=== PATIENT | female | born 1960 | race Caucasian/White ===

== ENCOUNTER → 2017-11-16 | Outpatient (CLI) | payer BC ==
--- NOTE | 2017-11-16 09:14 | FL ---
EXAMINATION TYPE: FL UGI DATE OF EXAM: 11/16/2017 COMPARISON: CTA chest July 20, 2016. HISTORY: Heartburn and discomfort after eating. TECHNIQUE: A double contrast UGI study is performed. 55 seconds of fluoroscopic time was utilized du ring procedure. 30 spot images were obtained during procedure. FINDINGS: [employer] image of the abdomen shows no gross abnormality. The esophagus shows normal some dysmotility with diminished transient time and emptying into stomach. No suspicious diverticular or intraluminal mass is identified. No strictures seen. No evidence of fi xed hiatal hernia. The stomach shows normal distensibility and peristalsis. There is mild to moderate gastric fold promi nence in the fundus. No evidence of any mass or carol ulcer disease. A few episodes of gastroesophag eal reflux were seen during real-time performance of study. The duodenal bulb, sweep, and proximal sm all bowel loops are unremarkable. IMPRESSION: Mild esophageal dysmotility, mild to moderate fundal gastritis. Gastroesophageal reflux v isualized.
== END | disposition home or self-care (01) ==
LOC: RADFLMAIN 07:41
PROVIDERS: ATTEND Family Medicine
DX: K22.4 Dyskinesia of esophagus (principal); K21.9 Gastro-esophageal reflux disease without esophagitis; K29.70 Gastritis, unspecified, without bleeding
CPT/HCPCS: 74240

== ENCOUNTER → 2017-12-01 | Outpatient (CLI) | payer BC ==
--- NOTE | 2017-12-01 12:28 | US ---
EXAMINATION TYPE: US abdomen complete DATE OF EXAM: 12/01/2017 COMPARISON: NONE CLINICAL HISTORY: 57-year-old female K30 Functional Dyspepsia. RUQ pain, nausea after eating, patient states having right adrenal gland surgery. Technique: Multiple sonographic images of the abdomen are obtained. FINDINGS: Liver Length: 19.4 cm Gallbladder Wall: 0.1 cm CHD: 5.7 mm CBD: 7.1 mm Spleen: 11.0 cm Right Kidney: 10.8 x 5.0 x 5.0 cm Left Kidney: 12.7 x 5.8 cm Pancreas: Appears somewhat atrophic and heterogeneous. Main pancreatic duct is dilated at 5.5 mm. Ta il not well visualized due to overlying bowel gas Liver: Enlarged, heterogeneous, echogenic, and attenuating. No focal lesion identified. Gallbladder: wnl Evidence for sonographic Hernandez's sign: neg CHD: Upper limits of normal in caliber. CBD: wnl Spleen: wnl Right Kidney: wnl Left Kidney: Sagittal images were taken and appears within normal limits. No masses or hydronephro sis seen. Transverse images not saved due to tech error. Upper IVC: wnl Abd Aorta: wnl IMPRESSION: 1. Mildly dilated main pancreatic duct. The hepatic duct also measures at the upper limits of normal in caliber. This may be chronic for the patient. Correlate with alkaline phosphatase/bilirubin as wel l as amylase/lipase levels. Follow-up CT to compare from 2016 as clinically indicated. 2. Mild hepatomegaly and heterogeneous appearance to the liver. Findings suggest underlying hepatic s teatosis or other nonspecific hepatocellular disease.
--- NOTE | 2017-12-01 12:30 | US ---
EXAMINATION TYPE: US pelvic limited DATE OF EXAM: 12/01/2017 COMPARISON: NONE CLINICAL HISTORY: 57-year-old female K30 Functional Dyspepsia. Frequent UTI's and increase in urinary frequency. Patient states having a total hysterectomy in 2000. EXAM PERFORMED: transabdominal (TA) FINDINGS: Uterus surgically absent. Both ovaries are surgically absent. No evident adnexal abnormality or cul-de-sac free fluid. Partial distention of the bladder limits its evaluation. Both ureteral jets are visualized. Postvoid bladder volume is 2.8 ml, within normal limits with essentially complete emptying. IMPRESSION: 1. Status post hysterectomy and bilateral oophorectomy. 2. No evident adnexal abnormality or pelvic free fluid. 3. The bladder is initially poorly distended. Both ureteral jets are visualized. 4. After voiding, there is essentially complete emptying of the bladder.
== END | disposition home or self-care (01) ==
LOC: RADUSWWP 09:33
PROVIDERS: ATTEND Family Medicine
DX: K86.89 Other specified diseases of pancreas (principal); R16.0 Hepatomegaly, not elsewhere classified; R93.2 Abnormal findings on diagnostic imaging of liver and biliary tract; Z90.710 Acquired absence of both cervix and uterus
CPT/HCPCS: 76700; 76857

== ENCOUNTER → 2018-03-17 | Outpatient (CLI) | payer BC ==
--- NOTE | 2018-03-17 18:59 | US ---
EXAMINATION TYPE: US venous doppler duplex LE DATE OF EXAM: 03/17/2018 6:45 PM COMPARISON: NONE CLINICAL HISTORY: I89.0 Lymphedema. edema hx of blood clots and PE on blood thinners. SIDE PERFORMED: Bilateral TECHNIQUE: The lower extremity deep venous system is examined utilizing real time linear array sonog susan with graded compression, doppler sonography and color-flow sonography. VESSELS IMAGED: External Iliac Vein (EIV) Common Femoral Vein Deep Femoral Vein Greater Saphenous Vein * Femoral Vein Popliteal Vein Small Saphenous Vein * Proximal Calf Veins (* superficial vessels) Right Leg: Negative for DVT Left Leg: Negative for DVT No evidence of DVT bilateral legs. IMPRESSION: No evidence of deep venous thrombosis in both legs.
== END | disposition home or self-care (01) ==
LOC: RADUSMAIN 17:46
PROVIDERS: ATTEND Family Medicine
DX: I89.0 Lymphedema, not elsewhere classified (principal)
CPT/HCPCS: 93970

== ENCOUNTER 2018-06-23 14:39 | Observation (INO) | payer BC ==
[2018-06-23] MEDS ORDERED: SODIUM CHLORIDE 0.9% 1,000 ML IV STA (15:09)
--- NOTE | 2018-06-23 16:03 | ED ---
Dizziness HPI - General Chief Complaint: Dizziness Stated Complaint: dizziness Time Seen by Provider: 06/23/18 15:03 Source: patient, RN notes reviewed Mode of arrival: wheelchair Limitations: no limitations - History of Present Illness Initial Comments: This a 58-year-old female presents emergency Department chief complaint of dizziness, fatigue. Patient states that she's had on-and-off dizzy spells where she feels that she loses her balance. She states that she's also been short of breath of the usual. Patient states that she does have a history of PE currently takes warfarin. Patient states that she has been subtherapeutic at times. Patient denies any chest pain per se. Patient states that she does feel very rundown and fatigued. Patient has no urinary symptoms. Patient does have mild sinus congestion. She does have a history of recurrent sinus infections. - Related Data Home Medications Medication Instructions Recorded Confirmed Bisoprolol-Hctz 5-6.25 mg [Ziac 1 tab PO DAILY 07/25/15 07/20/16 5-6.25 MG] Cholecalciferol [Vitamin D3] 1,000 unit PO DAILY 07/25/15 07/20/16 Gemfibrozil [Lopid] 600 mg PO DAILY 07/25/15 07/20/16 glipiZIDE [Glucotrol XL] 5 mg PO DAILY 07/25/15 07/20/16 ALPRAZolam 1 mg PO DAILY PRN 07/20/16 07/20/16 glipiZIDE [Glipizide ER] 5 mg PO DAILY 07/20/16 07/20/16 metFORMIN HCL 1,000 mg PO BID 07/20/16 07/20/16 metFORMIN HCL 1,000 mg PO BID 07/20/16 07/20/16 Previous Rx's Medication Instructions Recorded Rivaroxaban [Xarelto] 15 mg PO BID-W/MEALS #42 tab 07/22/16 Allergies Allergy/AdvReac Type Severity Reaction Status Date / Time amoxicillin Allergy Rash/Hives Verified 06/23/18 14:46 ibuprofen [From Motrin] Allergy Rash/Hives Verified 06/23/18 14:46 levofloxacin [From Levaquin] Allergy Rash/Hives Verified 06/23/18 14:46 sulfamethoxazole Allergy Rash/Hives Verified 06/23/18 14:46 [From Bactrim] trimethoprim [From Bactrim] Allergy Rash/Hives Verified 06/23/18 14:46 Review of Systems ROS Statement: Those systems with pertinent positive or pertinent negative responses have been documented in the HPI. ROS Other: All systems not noted in ROS Statement are negative. Past Medical History Past Medical History: Diabetes Mellitus, Deep Vein Thrombosis (DVT), Hyperlipidemia, Hypertension, Pulmonary Embolus (PE) History of Any Multi-Drug Resistant Organisms: None Reported Past Surgical History: Appendectomy, Section, Hysterectomy, Tubal Ligation Additional Past Surgical History / Comment(s): sinus surgery x3, X4, tubal and reversal, left kidney cyst removed, cyst removed fallopian tube Past Anesthesia/Blood Transfusion Reactions: Postoperative Nausea & Vomiting ( PONV) Past Psychological History: Anxiety Smoking Status: Never smoker Past Alcohol Use History: None Reported Past Drug Use History: None Reported - Past Family History Mother Family Medical History: Deep Vein Thrombosis (DVT) Additional Family Medical History / Comment(s): yeast allergy. Maternal grandmother DVT General Exam Limitations: no limitations General appearance: alert, in no apparent distress Head exam: Present: atraumatic, normocephalic, normal inspection Eye exam: Present: normal appearance, PERRL, EOMI. Absent: scleral icterus, conjunctival injection, periorbital swelling ENT exam: Present: normal exam, normal oropharynx, mucous membranes moist, TM's normal bilaterally Neck exam: Present: normal inspection, full ROM. Absent: tenderness, meningismus, lymphadenopathy Respiratory exam: Present: normal lung sounds bilaterally. Absent: respiratory distress, wheezes, rales, rhonchi, stridor Cardiovascular Exam: Present: regular rate, normal rhythm, normal heart sounds. Absent: systolic murmur, diastolic murmur, rubs, gallop, clicks GI/Abdominal exam: Present: soft, normal bowel sounds. Absent: distended, tenderness, guarding, rebound, rigid Neurological exam: Present: alert, oriented X3, CN II-XII intact, reflexes normal. Absent: motor sensory deficit Skin exam: Present: warm, dry, intact, normal color. Absent: rash Course Vital Signs 06/23/18 06/23/18 14:42 16:11 Temperature 98.0 F 97.6 F Pulse Rate 68 65 Respiratory 18 19 Rate Blood Pressure 126/66 121/56 O2 Sat by Pulse 97 99 Oximetry EKG Findings - EKG Comments: EKG Findings:: EKG performed at 15:22 normal sinus rhythm with rate of 64 WV 192 QRS 88 QT/QTC 450/464 Medical Decision Making - Medical Decision Making 4-year-old female presented to emergency department for dizziness, fatigue and shortness breath. Patient is evidence of PE. Patient's INR is 2.8 currently. Patient will be placed on heparin with no bolus and will be admitted at this time for further evaluation and treated for her urinary tract infection. - Lab Data Result diagrams: 06/23/18 15:32 06/23/18 15:32 Lab Results 06/23/18 06/23/18 06/23/18 Range/Units 15:32 15:32 15:32 WBC 8.8 (3.8-10.6) k/uL RBC 4.48 (3.80-5.40) m/uL Hgb 11.7 (11.4-16.0) gm/dL Hct 36.1 (34.0-46.0) % MCV 80.7 (80.0-100.0) fL MCH 26.1 (25.0-35.0) pg MCHC 32.4 (31.0-37.0) g/dL RDW 15.4 (11.5-15.5) % Plt Count 302 (150-450) k/uL Neutrophils % 47 % Lymphocytes % 40 % Monocytes % 7 % Eosinophils % 2 % Basophils % 1 % Neutrophils # 4.1 (1.3-7.7) k/uL Lymphocytes # 3.5 (1.0-4.8) k/uL Monocytes # 0.6 (0-1.0) k/uL Eosinophils # 0.2 (0-0.7) k/uL Basophils # 0.1 (0-0.2) k/uL PT 25.3 H (9.0-12.0) sec INR 2.8 H (<1.2) Sodium 138 (137-145) mmol/L Potassium 4.5 (3.5-5.1) mmol/L Chloride 101 (98-107) mmol/L Carbon Dioxide 30 (22-30) mmol/L Anion Gap 7 mmol/L BUN 19 H (7-17) mg/dL Creatinine 0.81 (0.52-1.04) mg/dL Est GFR (CKD-EPI)AfAm >90 (>60 ml/min/1.73 sqM) Est GFR (CKD-EPI)NonAf 80 (>60 ml/min/1.73 sqM) Glucose 132 H (74-99) mg/dL Calcium 9.6 (8.4-10.2) mg/dL Total Bilirubin 0.3 (0.2-1.3) mg/dL AST 19 (14-36) U/L ALT 26 (9-52) U/L Alkaline Phosphatase 59 (38-126) U/L Troponin I (0.000-0.034) ng/mL Total Protein 7.3 (6.3-8.2) g/dL Albumin 3.7 (3.5-5.0) g/dL Urine Color Urine Appearance (Clear) Urine pH (5.0-8.0) Ur Specific [place] (1.001-1.035) Urine Protein (Negative) Urine Glucose (UA) (Negative) Urine Ketones (Negative) Urine Blood (Negative) Urine Nitrite (Negative) Urine Bilirubin (Negative) Urine Urobilinogen (<2.0) mg/dL Ur Leukocyte Esterase (Negative) Urine RBC (0-5) /hpf Urine WBC (0-5) /hpf Urine Bacteria (None) /hpf 06/23/18 06/23/18 Range/Units 15:32 15:32 WBC (3.8-10.6) k/uL RBC (3.80-5.40) m/uL Hgb (11.4-16.0) gm/dL Hct (34.0-46.0) % MCV (80.0-100.0) fL MCH (25.0-35.0) pg MCHC (31.0-37.0) g/dL RDW (11.5-15.5) % Plt Count (150-450) k/uL Neutrophils % % Lymphocytes % % Monocytes % % Eosinophils % % Basophils % % Neutrophils # (1.3-7.7) k/uL Lymphocytes # (1.0-4.8) k/uL Monocytes # (0-1.0) k/uL Eosinophils # (0-0.7) k/uL Basophils # (0-0.2) k/uL PT (9.0-12.0) sec INR (<1.2) Sodium (137-145) mmol/L Potassium (3.5-5.1) mmol/L Chloride (98-107) mmol/L Carbon Dioxide (22-30) mmol/L Anion Gap mmol/L BUN (7-17) mg/dL Creatinine (0.52-1.04) mg/dL Est GFR (CKD-EPI)AfAm (>60 ml/min/1.73 sqM) Est GFR (CKD-EPI)NonAf (>60 ml/min/1.73 sqM) Glucose (74-99) mg/dL Calcium (8.4-10.2) mg/dL Total Bilirubin (0.2-1.3) mg/dL AST (14-36) U/L ALT (9-52) U/L Alkaline Phosphatase (38-126) U/L Troponin I <0.012 (0.000-0.034) ng/mL Total Protein (6.3-8.2) g/dL Albumin (3.5-5.0) g/dL Urine Color Colorless Urine Appearance Clear (Clear) Urine pH 7.0 (5.0-8.0) Ur Specific [place] 1.005 (1.001-1.035) Urine Protein Negative (Negative) Urine Glucose (UA) Negative (Negative) Urine Ketones Negative (Negative) Urine Blood Negative (Negative) Urine Nitrite Negative (Negative) Urine Bilirubin Negative (Negative) Urine Urobilinogen <2.0 (<2.0) mg/dL Ur Leukocyte Esterase Large H (Negative) Urine RBC <1 (0-5) /hpf Urine WBC 56 H (0-5) /hpf Urine Bacteria Rare H (None) /hpf Disposition Clinical Impression: Pulmonary embolism, UTI (urinary tract infection) Disposition: ADMITTED IP TO THIS HOSP Condition: Fair Referrals: Jus Sams DO [Primary Care Provider] - 1-2 days
[2018-06-23 16:09] LABS: Basophils # (A) 0.1 k/uL (0-0.2); Basophils % (A) 1 %; Eosinophils # (A) 0.2 k/uL (0-0.7); Eosinophils % (A) 2 %; HCT 36.1 % (34.0-46.0); HGB 11.7 gm/dL (11.4-16.0); Lymphocytes # (A) 3.5 k/uL (1.0-4.8); Lymphocytes % (A) 40 %; MCH 26.1 pg (25.0-35.0); MCHC 32.4 g/dL (31.0-37.0); MCV 80.7 fL (80.0-100.0); Mean Platelet Volume 7.3; Monocytes # (A) 0.6 k/uL (0-1.0); Monocytes % (A) 7 %; Neutrophils # (A) 4.1 k/uL (1.3-7.7); Neutrophils % (A) 47 %; Platelet Count 302 k/uL (150-450); RBC 4.48 m/uL (3.80-5.40); RDW 15.4 % (11.5-15.5); WBC 8.8 k/uL (3.8-10.6)
[2018-06-23 16:16] LABS: Appearance,Urine Clear (Clear); Bacteria,Urine Rare /hpf; Bilirubin,Urine Negative (Negative); Blood,Urine Negative (Negative); Color,Urine Colorless; Glucose,Urine (UA) Negative (Negative); Ketones,Urine Negative (Negative); Leukocyte Esterase,Urine Large (Negative); Nitrite,Urine Negative (Negative); Protein,Urine Negative (Negative); RBC,Urine <1 /hpf (0-5); Specific Gravity,Urine 1.005 (1.001-1.035); Urobilinogen,Urine <2.0 mg/dL (<2.0); WBC,Urine 56 /hpf (0-5)
[2018-06-23 16:24] LABS: ALT 26 U/L (9-52); AST 19 U/L (14-36); Albumin 3.7 g/dL (3.5-5.0); Alkaline Phosphatase 59 U/L (38-126); Anion Gap 7 mmol/L; Blood Urea Nitrogen 19 mg/dL (7-17); Calcium 9.6 mg/dL (8.4-10.2); Carbon Dioxide 30 mmol/L (22-30); Chloride 101 mmol/L (98-107); Glucose 132 mg/dL (74-99); Potassium 4.5 mmol/L (3.5-5.1); Sodium 138 mmol/L (137-145); Total Bilirubin 0.3 mg/dL (0.2-1.3); Total Protein 7.3 g/dL (6.3-8.2)
[2018-06-23 16:26] LABS: INR 2.8 (<1.2); Prothrombin Time 25.3 sec (9.0-12.0)
--- NOTE | 2018-06-23 17:33 | CT ---
EXAMINATION TYPE: CT brain wo con DATE OF EXAM: 06/23/2018 COMPARISON: None HISTORY: Dizziness CT DLP: 1079 mGycm Automated exposure control for dose reduction was used. FINDINGS: Ventricles and sulci appear normal. There is no mass effect nor midline shift. There is no sign of in tracranial hemorrhage. The calvarium is intact. There is extensive mucosal thickening in the visualiz ed maxillary ethmoid and frontal sinuses. Sphenoid sinus appears opacified. IMPRESSION: NEGATIVE CT SCAN OF THE BRAIN. PANSINUSITIS.
--- NOTE | 2018-06-23 18:05 | CT ---
EXAMINATION TYPE: CT chest angio for PE DATE OF EXAM: 06/23/2018 COMPARISON: 07/20/2016 HISTORY: Dizziness and chest pains CT DLP: 620 mGycm Automated exposure control for dose reduction was used. CONTRAST: CT Chest for pulmonary embolism performed with with IV Contrast, patient injected with 100 mL of Isov ue 370. There are 3-D post processed images. FINDINGS: There is some patchy linear density in the lingula left upper lobe. The other lung calhoun are clear. There is no pleural effusion. Heart appears enlarged. There is a small filling defect in the right lower lobe pulmonary artery in the lateral basal segment branch. There are small filling defect in the proximal right lower lobe pulmonary artery in the post erior basal segment branch. There are other pulmonary arteries appear to be more normally opacified. Thoracic aorta appears normal. There is no evidence of aneurysm or dissection. There is no mediastina l adenopathy. There are no hilar masses. There is a oval-shaped 3.8 cm mass right adrenal gland. IMPRESSION: Embolism in the right lower lobe pulmonary artery. There is significant clearing of the extensive emb martin compared to old CT scan of 07/20/2016. It is not clear if the embolism right lower lobe is a new embolism. Stable right adrenal mass compared to old exam that suggests benign disease. This exam was discussed with Fiordaliza in the emergency room at 6:00 PM.
[2018-06-23] MEDS ORDERED: NALOXONE 0.4 MG/ML 1 ML VIAL IV PRN (18:34)
[2018-06-23] MEDS ORDERED: ACETAMINOPHEN TAB 325 MG TAB PO PRN (18:34)
[2018-06-23] MEDS: HEPARIN SOD,PORK IN 0.45% NACL 25,000 UNIT in 0.45% NACL 1 500ML.BAG IV SCH (19:13)
[2018-06-23 20:34] VITALS: BMI 50.4
[2018-06-23] MEDS ORDERED: CALCIUM CARBONATE 500 MG CHEWABLE PO PRN (21:31)
[2018-06-23] MEDS ORDERED: MAGNESIUM HYDROXIDE 2,400 MG/10 ML CUP PO PRN (21:31)
[2018-06-23] MEDS ORDERED: ALPRAZolam 1 MG TAB PO PRN (21:31)
[2018-06-23] MEDS ORDERED: MELATONIN 3 MG TABLET PO PRN (21:31)
[2018-06-23] MEDS ORDERED: LACTULOSE 20 GM/30 ML CUP PO PRN (21:31)
[2018-06-23] MEDS ORDERED: ALPRAZolam 0.25 MG TAB PO PRN (21:31)
[2018-06-23] MEDS ORDERED: ONDANSETRON 4 MG/2 ML VIAL IVP PRN (21:31)
[2018-06-23] MEDS ORDERED: NON-FORMULARY DRUG (Acetaminophen [Tylenol Arthritis] 650 MG) PO PRN (21:31)
[2018-06-23 21:32] LABS: Glucose,Whole Blood 218 mg/dL (75-99)
[2018-06-23] MEDS: INSULIN ASPART 100 UNIT/ML 1 ML 10 ML VIAL SQ SCH (21:55)
[2018-06-23] MEDS: FAMOTIDINE 20 MG TAB PO SCH (21:55)
[2018-06-24 05:45] LABS: Glucose,Whole Blood 163 mg/dL (75-99)
[2018-06-24] MEDS: INSULIN ASPART 100 UNIT/ML 1 ML 10 ML VIAL SQ SCH ×3 (06:35→17:29)
[2018-06-24] MEDS: HEPARIN SOD,PORK IN 0.45% NACL 25,000 UNIT in 0.45% NACL 1 500ML.BAG IV SCH ×2 (06:35→18:33)
[2018-06-24] MEDS ORDERED: INSULIN ASPART 100 UNIT/ML 1 ML 10 ML VIAL SQ SCH (07:30)
[2018-06-24] MEDS: glipiZIDE 5 MG TAB PO SCH ×2 (08:22→19:54)
[2018-06-24] MEDS: ESCITALOPRAM 10 MG TAB PO SCH (08:22)
[2018-06-24] MEDS: metFORMIN 500 MG TAB PO SCH ×2 (08:22→19:54)
[2018-06-24] MEDS: BISOPROLOL-HCTZ 5-6.25 MG 1 EACH TAB PO SCH (08:22)
[2018-06-24] MEDS: FENOFIBRATE 160 MG TAB PO SCH (08:22)
[2018-06-24] MEDS: FAMOTIDINE 20 MG TAB PO SCH ×2 (08:23→19:54)
[2018-06-24 11:39] LABS: Glucose,Whole Blood 140 mg/dL (75-99)
--- NOTE | 2018-06-24 12:44 | P.CNPUL ---
History of Present Illness Consult date: 06/24/18 Reason for consult: other Chief complaint: Lightheadedness, dizziness, urinary tract infection, weakness History of present illness: Pulmonary consultation dated 06/24/2018 This is a 58-year-old female who presents to the emergency department with complaints of dizziness fatigue and weakness. The patient is not really having any shortness of breath. The patient denies any chest pain or chest discomfort. The patient apparently was seen by her primary care physician and apparently had a low iron level. Apparently was told by the office medical staff director to come to the ER. The patient is on blood thinners in the form of Coumadin. She's been on blood thinners for quite some time. 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 She was told by Dr. Velazquez that she needed lifelong anticoagulation which she's been on. She states that her PT INR have always been therapeutic. She does admit to some urinary complaints in the form of dysuria and frequency and was diagnosed as having a urinary tract infection. This may explain some of her symptoms of fatigue dizziness and weakness. In addition, she feels that she has a mild sinus infection. Doing relatively well now. She is not anemic. Her PT/INR is within the normal therapeutic range. She's not requiring any supplemental oxygen. She had a CT angiogram performed which some residual clot in the right lower lobe pulmonary artery. Most of the clot burden has dissipated. This is apparently compared to a computed tomography scan done back in June 2016. White count is 8.8, hemoglobin 11.7 hematocrit 36.1 and platelet count 302,000. PT 25.3 INR therapeutic at 2.8. The patient's on IV heparin and I'm not sure exactly why. Sodium potassium chloride CO2 all normal. BUN 19 creatinine 0.81. Urinalysis is positive for leukocyte esterase and 56 WBCs and rare bacteria. Review of Systems A 14 point review of systems is positive for lightheadedness and dizziness weakness and fatigue as well as some mild urinary tract symptoms. Not having any shortness of breath or any respiratory complaints for that matter. Past Medical History Past Medical History: Diabetes Mellitus, Deep Vein Thrombosis (DVT), Hyperlipidemia, Hypertension, Pulmonary Embolus (PE) History of Any Multi-Drug Resistant Organisms: None Reported Past Surgical History: Appendectomy, Section, Hysterectomy, Tubal Ligation Additional Past Surgical History / Comment(s): sinus surgery x3, X4, tubal and reversal, left kidney cyst removed, cyst removed fallopian tube Past Anesthesia/Blood Transfusion Reactions: Postoperative Nausea & Vomiting ( PONV) Past Psychological History: Anxiety Smoking Status: Never smoker Past Alcohol Use History: None Reported Past Drug Use History: None Reported - Past Family History Mother Family Medical History: Deep Vein Thrombosis (DVT) Additional Family Medical History / Comment(s): yeast allergy. Maternal grandmother DVT Medications and Allergies Home Medications Medication Instructions Recorded Confirmed Type Bisoprolol-Hctz 5-6.25 mg [Ziac 1 tab PO DAILY 07/25/15 06/23/18 History 5-6.25 MG] Gemfibrozil [Lopid] 600 mg PO DAILY 07/25/15 06/23/18 History ALPRAZolam 1 mg PO DAILY PRN 07/20/16 06/23/18 History glipiZIDE [Glipizide ER] 10 mg PO DAILY 07/20/16 06/23/18 History metFORMIN HCL 1,000 mg PO BID 07/20/16 06/23/18 History Acetaminophen [Tylenol Arthritis] 650 mg PO Q6H PRN 06/23/18 06/23/18 History Escitalopram Oxalate [Lexapro] 10 mg PO DAILY 06/23/18 06/23/18 History Ranitidine HCl [Zantac] 150 mg PO BID 06/23/18 06/23/18 History Warfarin [Coumadin] 2.5 mg PO SUMOTUTHFRSA 06/23/18 06/23/18 History Warfarin [Coumadin] 5 mg PO WE 06/23/18 06/23/18 History Allergies Allergy/AdvReac Type Severity Reaction Status Date / Time amoxicillin Allergy Rash/Hives Verified 06/23/18 18:45 ibuprofen [From Motrin] Allergy Rash/Hives Verified 06/23/18 18:45 levofloxacin [From Levaquin] Allergy Rash/Hives Verified 06/23/18 18:45 sulfamethoxazole Allergy Rash/Hives Verified 06/23/18 18:45 [From Bactrim] trimethoprim [From Bactrim] Allergy Rash/Hives Verified 06/23/18 18:45 Physical Exam Osteopathic Statement: *. No significant issues noted on an osteopathic structural exam other than those noted in the History and Physical/Consult. Vitals: Vital Signs Temp Pulse Pulse Resp BP BP Pulse Ox 06/24/18 08:00 96.8 F L 72 16 118/58 95 06/24/18 03:29 64 18 06/24/18 03:28 97.6 F 64 18 124/86 99 06/23/18 23:37 97.3 F L 74 18 130/73 96 06/23/18 23:26 60 18 06/23/18 20:24 97.0 F L 60 18 157/83 99 06/23/18 20:00 60 18 06/23/18 18:47 61 18 152/67 98 06/23/18 18:41 97.8 F 66 18 158/71 97 06/23/18 16:11 97.6 F 65 19 121/56 99 06/23/18 14:42 98.0 F 68 18 126/66 97 Intake and Output 06/23/18 06/24/18 06/24/18 22:59 06:59 14:59 Intake Total 80 525.033 862.333 Balance 80 525.033 862.333 Intake: IV 80 80 219.5 0.9 80 80 30 Heparin Sod,Pork in 0.45% 189.5 NaCl 25,000 unit In 0.45 % NaCl 1 500ml.bag @ 17. 248 UNITS/KG/HR 46 mls/hr IV .[id number] [facility] Rx#: [id number] Intake, IV Titration 445.033 217.833 Amount Heparin Sod,Pork in 0.45% 445.033 167.833 NaCl 25,000 unit In 0.45 % NaCl 1 500ml.bag @ 17. 248 UNITS/KG/HR 46 mls/hr IV .[id number] [facility] Rx#: [id number] 1,000 mg In 50 Sodium Chloride 0.9% 50 ml @ 100 mls/hr IVPB Q24HR [facility] Rx#:[id number] Oral 425 Other: Voiding Method Toilet Toilet Toilet # Voids 2 Weight 133.356 kg 134.5 kg No acute distress, oriented 3. No obvious respiratory distress and not requiring any supplemental oxygen. HEENT examination is grossly unremarkable. Mucous membranes are moist. No oral lesions. Neck supple. Full range of motion. No adenopathy thyromegaly or neck vein distention. Cardiovascular examination reveals regular rhythm rate. S1-S2 normal. No S3 or S4. No discernible murmur noted. Lungs reveal clear breath sounds. Breath sounds are equal bilaterally. No adventitious lung sounds including wheezes rhonchi or crackles. Abdomen soft bowel sounds are heard. No masses or tenderness. Extremities are intact. No cyanosis clubbing or edema. Skin is without rash or lesion. Neurologic examination is brief but nonfocal. Results - Laboratory Findings CBC and BMP: 06/23/18 15:32 06/23/18 15:32 PT/INR, D-dimer PT 25.3 sec (9.0-12.0) H 06/23/18 15:32 INR 2.8 (<1.2) H 06/23/18 15:32 Abnormal lab findings: Abnormal Labs 06/23/18 06/23/18 06/23/18 15:32 15:32 15:32 PT 25.3 H INR 2.8 H APTT BUN 19 H Glucose 132 H POC Glucose (mg/dL) Ur Leukocyte Esterase Large H Urine WBC 56 H Urine Bacteria Rare H 06/23/18 06/24/18 06/24/18 21:31 01:15 05:43 PT INR APTT 113.9 H* BUN Glucose POC Glucose (mg/dL) 218 H 163 H Ur Leukocyte Esterase Urine WBC Urine Bacteria 06/24/18 06/24/18 09:53 11:37 PT INR APTT 77.5 H BUN Glucose POC Glucose (mg/dL) 140 H Ur Leukocyte Esterase Urine WBC Urine Bacteria - Diagnostic Findings Chest x-ray: report reviewed, image reviewed CT scan - chest: report reviewed, image reviewed (Labs, x-rays, medications, and computed tomography scan are reviewed.) Assessment and Plan Assessment: Assessment Vague complaints of lightheadedness and dizziness and fatigue, unlikely related to a new onset pulmonary embolism but rather to either a sinus infection and/or a urinary tract infection. 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 Urinary tract infection, acute History of diabetes mellitus Previous history of DVT Hyperlipidemia History of hypertension Previous history of , hysterectomy, tubal ligation Plan: Plan dated 06/24/2018 I don't believe the patient has had a new onset pulmonary embolism. I think what we are seeing in the right lower lobe pulmonary artery is residual or old clot from the previous pulmonary embolism. Most of the clot burden from 2016 has dissipated. I don't believe the patient needs IV heparin. The patient has been therapeutic. The patient has been on warfarin since 2016 when she had the previous PE when she was discovered to have factor V Leiden factor deficiency. I believe her complaints are related either to a sinus infection and/or an acute urinary tract infection. She is comfortable on room air. She is not having any respiratory issues or complaints. She should stay on blood thinners in the form of Coumadin that she seemed to tolerate it relatively well and is usually therapeutic. No additional recommendations are made at this time. Time with Patient: Greater than 30
--- NOTE | 2018-06-24 15:33 | US ---
EXAMINATION TYPE: US venous doppler duplex LE DATE OF EXAM: 06/24/2018 2:59 PM COMPARISON: NONE CLINICAL HISTORY: r/o DVT Leg swelling, worse on right. Morbidly obese patient. SIDE PERFORMED: Bilateral TECHNIQUE: The lower extremity deep venous system is examined utilizing real time linear array sonog susan with graded compression, doppler sonography and color-flow sonography. VESSELS IMAGED: External Iliac Vein (EIV) Common Femoral Vein Deep Femoral Vein Greater Saphenous Vein * Femoral Vein Popliteal Vein Small Saphenous Vein * Proximal Calf Veins, not visualized due to obesity (* superficial vessels) Right Leg: Negative for DVT, technically difficult and somewhat limited study Left Leg: Negative for DVT, technically difficult and somewhat limited study. IMPRESSION: 1. Limited exam demonstrates no diagnostic evidence of DVT.
[2018-06-24 16:05] LABS: Hemoglobin A1C 8.7 % (4.0-6.0)
[2018-06-24 16:26] LABS: Glucose,Whole Blood 155 mg/dL (75-99)
[2018-06-24] MEDS ORDERED: WARFARIN 2.5 MG TAB PO SCH (18:00)
--- NOTE | 2018-06-24 18:45 | HP ---
HISTORY AND PHYSICAL DATE OF ADMISSION: 06/23/2018 DATE OF SERVICE: 06/24/2018 PRESENTING COMPLAINT: Weak and tired. HISTORY OF PRESENTING COMPLAINT: This is a very pleasant 58-year-old patient of Dr. Sams. Chronic stable medical conditions include diabetes, hypertension, hyperlipidemia, anxiety. Patient had a pulmonary embolism in April 2016 and has been on Coumadin. Patient presented to the ER with a multitude of symptoms. The patient has been taking care of her with Parkinson's for quite a while and gets really exhausted. Patient tends to wake up several times at night, never gets a good sleep and is tired all the time. She goes to work at the [employer] for half a day and is tired all the time. The patient simply feels completely exhausted and rundown. There is no chest pain or shortness of breath. No palpitation. Just feels totally off; often wants to just sleep. Sometimes she has to sleep in a recliner because of that and normally gets cumulative about 5 or 6 hours of sleep a day. Normally she used to normally get 8 to 10 hours of sleep a day. Her 23-year-old son takes care of her when she goes to work. Patient's appetite has been off. No fever. No chills. The patient has some urinary frequency. The patient did have a CT scan in the ER and pulmonary embolism was noted. They could not tell if it is acute or chronic; hence patient was put on IV heparin in the ER. The patient's INR was therapeutic. REVIEW OF SYSTEMS: CONSTITUTIONAL: Tired, sleepy. HEENT: None. RESPIRATORY: None. CARDIOVASCULAR: None. GASTROINTESTINAL: None. GENITOURINARY: Some urinary frequency. DERMATOLOGICAL: None. HEMATOLOGICAL: None. LYMPHATICS: None. PSYCHIATRY: Tired. NEUROLOGICAL: None. PAST MEDICAL HISTORY: 1. Diabetes mellitus, type 2. 2. DVT. 3. Hyperlipidemia. 4. Hypertension. 5. Pulmonary embolism. PAST SURGICAL HISTORY: 1. Appendectomy. 2. x4. 3. Hysterectomy. 4. Tubal ligation. 5. Sinus surgery x3. 6. Tubal ligation reversal. 7. Left kidney cyst removed. PSYCH HISTORY: Anxiety. SOCIAL HISTORY: Does not smoke or drink alcohol. Takes care of her with Parkinson's disease. FAMILY HISTORY: DVT. HOME MEDICATIONS: 1. Metformin 1000 mg b.i.d. 2. Glipizide ER 10 mg p.o. daily. 3. Coumadin 2.5 mg on Thursday, Thursday, Thursday, , Thursday, Thursday and 5 mg on Thursday. 4. Zantac 150 mg p.o. b.i.d. 5. Lopid 600 mg p.o. daily. 6. Lexapro 10 mg p.o. daily. 7. Ziac 5/6.25 one tablet p.o. daily. 8. Tylenol Arthritis 650 mg q.6 p.r.n. 9. Xanax 1 mg p.o. daily p.r.n. ALLERGIES: 1. AMOXICILLIN. 2. IBUPROFEN. 3. LEVAQUIN. 4. BACTRIM. PHYSICAL EXAMINATION: VITAL SIGNS ON PRESENTATION: Temperature 98, pulse 68, respiration 18, blood pressure 122/66, pulse ox 97% on room air. GENERAL APPEARANCE: Morbidly obese; 50.9. Sitting up on edge of the bed, comfortable. EYES: Pupils equal. Conjunctivae normal. HEENT: External appearance of nose and ears normal. Oral cavity normal. NECK: Short, thick. JVD unable to assess. Mass not palpable. RESPIRATORY: Effort normal. LUNGS: Distant breath sounds. CARDIOVASCULAR: First and second sounds normal. Non-pitting edema. ABDOMEN: Soft, nontender. Liver and spleen not palpable. LYMPHATIC: No lymph node palpable in neck or axillae. PSYCHIATRY: Alert and oriented x3. Mood and affect tired-appearing. NEUROLOGICAL: Pupils equal. Cranial nerves grossly intact. Power and sensation grossly intact. INVESTIGATIONS: White count 8.8, hemoglobin 11.7, INR 2.8, potassium 4.5, BUN 19, creatinine 0.81. Troponin I less than 0.012. UA positive for leukocyte esterase, WBC. CT scan of the brain unremarkable. Chest CTA shows embolism in the right lower lobe pulmonary artery, significant clearing of extensive emboli compared to CT scan in 2016. Acuteness of the embolism cannot be stated. EKG tracing, personally reviewed by me, shows normal sinus rhythm. ASSESSMENT: 1. This patient presents with feeling weak, tired, rundown with no respiratory symptoms. Appears to be simply exhausted by sheer sleep deprivation because patient has to be up at night taking care of her several times and does not get to sleep during the daytime; this is simply a manifestation of severe sleep deprivation. Patient needs to maintain better sleep hygiene. 2. Morbid obesity with body mass index of 50.9. 3. Rule out hypothyroidism. 4. Bilateral lower extremity lymphedema. 5. Chronic pulmonary embolism. Patient has no new respiratory symptoms; hence there is no need for further change of anticoagulation. Patient to continue on Coumadin. 6. Chronic Coumadin monitoring. 7. Hypertension. 8. Hyperlipidemia. 9. Diabetes mellitus, type 2, on oral hypoglycemic. PLAN: I had a lengthy talk with the patient. Did talk to her about her sleep hygiene. For precaution, a Doppler ultrasound of the lower extremities was done. No DVT was found. Pulmonary consultation was done to get their opinion from Dr. Carlisle. Will discontinue the IV heparin, resume patient's Coumadin. The patient is also being treated for UTI. We will give Tony wraps for the lower extremity non-pitting edema. Care was discussed with the patient. Questions were answered. MMDAWNAL / IJN: [id number] /
[2018-06-24 21:20] LABS: Glucose,Whole Blood 166 mg/dL (75-99)
[2018-06-24 21:59] VITALS: RESP 16
[2018-06-24 23:10] LABS: Appearance,Urine Clear (Clear); Bilirubin,Urine Negative (Negative); Blood,Urine Negative (Negative); Budding Yeast,Urine Occasional /hpf; Color,Urine Light Yellow; Glucose,Urine (UA) Negative (Negative); Ketones,Urine Negative (Negative); Leukocyte Esterase,Urine Moderate (Negative); Nitrite,Urine Negative (Negative); PH, Urine 6.5 (5.0-8.0); Protein,Urine Negative (Negative); RBC,Urine 1 /hpf (0-5); Specific Gravity,Urine 1.009 (1.001-1.035); Squamous Epithelial Cell,Urine <1 /hpf (0-4); Urobilinogen,Urine <2.0 mg/dL (<2.0); WBC,Urine 26 /hpf (0-5)
[2018-06-25 06:34] VITALS: BP 113/79; PULSE 71; TEMP 98
[2018-06-25 07:06] LABS: Glucose,Whole Blood 187 mg/dL (75-99)
[2018-06-25] MEDS: INSULIN ASPART 100 UNIT/ML 1 ML 10 ML VIAL SQ SCH ×2 (07:40→12:07)
[2018-06-25] MEDS: FAMOTIDINE 20 MG TAB PO SCH (07:41)
[2018-06-25] MEDS: FENOFIBRATE 160 MG TAB PO SCH (07:41)
[2018-06-25] MEDS: ESCITALOPRAM 10 MG TAB PO SCH (07:41)
[2018-06-25] MEDS: glipiZIDE 5 MG TAB PO SCH (07:41)
[2018-06-25] MEDS: BISOPROLOL-HCTZ 5-6.25 MG 1 EACH TAB PO SCH (07:41)
[2018-06-25] MEDS: metFORMIN 500 MG TAB PO SCH (07:41)
[2018-06-25] MEDS ORDERED: LEVOFLOXACIN 250 MG TAB PO SCH (09:00)
[2018-06-25 09:35] LABS: INR 1.9 (<1.2); Prothrombin Time 17.4 sec (9.0-12.0)
[2018-06-25] MEDS ORDERED: CIPROFLOXACIN HCL 250 MG TAB PO SCH (12:00)
[2018-06-25 12:06] LABS: Glucose,Whole Blood 113 mg/dL (75-99)
--- NOTE | 2018-06-25 12:31 | P.PN ---
Subjective Progress Note Date: 06/25/18 Principal diagnosis: Lightheadedness and dizziness and fatigue, likely related to pansinusitis. History of pulmonary embolism on Coumadin Pulmonary consultation dated 06/24/2018 This is a 58-year-old female who presents to the emergency department with complaints of dizziness fatigue and weakness. The patient is not really having any shortness of breath. The patient denies any chest pain or chest discomfort. The patient apparently was seen by her primary care physician and apparently had a low iron level. Apparently was told by the office medical planner to come to the ER. The patient is on blood thinners in the form of Coumadin. She's been on blood thinners for quite some time. 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 She was told by Dr. Velazquez that she needed lifelong anticoagulation which she's been on. She states that her PT INR have always been therapeutic. She does admit to some urinary complaints in the form of dysuria and frequency and was diagnosed as having a urinary tract infection. This may explain some of her symptoms of fatigue dizziness and weakness. In addition, she feels that she has a mild sinus infection. Doing relatively well now. She is not anemic. Her PT/INR is within the normal therapeutic range. She's not requiring any supplemental oxygen. She had a CT angiogram performed which some residual clot in the right lower lobe pulmonary artery. Most of the clot burden has dissipated. This is apparently compared to a computed tomography scan done back in June 2016. White count is 8.8, hemoglobin 11.7 hematocrit 36.1 and platelet count 302,000. PT 25.3 INR therapeutic at 2.8. The patient's on IV heparin and I'm not sure exactly why. Sodium potassium chloride CO2 all normal. BUN 19 creatinine 0.81. Urinalysis is positive for leukocyte esterase and 56 WBCs and rare bacteria. On 06/17/2018 patient seen in follow-up on medical surgical floor. She sitting up in the chair, in no acute distress. Room air pulse ox is 95%, she is afebrile, not tachycardic, vital signs are stable. No chest pain or shortness of breath. Lung sounds are clear to auscultation. He continues on Coumadin for her history of Leiden factor V deficiency, and history of pulmonary embolism. Her INR today is 1.9. Patient's CT angiogram revealed some residual clot in the right lower lobe pulmonary artery, with most of the clot burden dissipated. Brain CT showed pansinusitis. Patient is on ciprofloxacin Objective - Vital Signs Vital signs: Vital Signs Temp 98.0 F 06/25/18 06:33 Pulse 71 06/25/18 06:33 Resp 16 06/25/18 06:33 BP 113/79 06/25/18 06:33 Pulse Ox 95 06/25/18 11:29 Intake & Output 06/24/18 06/25/18 06/25/18 18:59 06:59 18:59 Intake Total 1582.333 480 Output Total 800 Balance 1582.333 -320 Intake: IV 219.5 0.9 30 Heparin Sod,Pork in 0.45% 189.5 NaCl 25,000 unit In 0.45 % NaCl 1 500ml.bag @ 17. 248 UNITS/KG/HR 46 mls/hr IV .[id number] [facility] Rx#: [id number] Intake, IV Titration 217.833 Amount Heparin Sod,Pork in 0.45% 167.833 NaCl 25,000 unit In 0.45 % NaCl 1 500ml.bag @ 17. 248 UNITS/KG/HR 46 mls/hr IV .[id number] [facility] Rx#: [id number] cefTRIAXone 1,000 mg In 50 Sodium Chloride 0.9% 50 ml @ 100 mls/hr IVPB Q24HR [facility] Rx#:[id number] Oral 1145 480 Output: Urine 800 Other: Voiding Method Toilet # Voids 2 1 # Bowel Movements 0 - Exam No acute distress, oriented 3. No obvious respiratory distress and not requiring any supplemental oxygen. HEENT examination is grossly unremarkable. Mucous membranes are moist. No oral lesions. Neck supple. Full range of motion. No adenopathy thyromegaly or neck vein distention. Cardiovascular examination reveals regular rhythm rate. S1-S2 normal. No S3 or S4. No discernible murmur noted. Lungs reveal clear breath sounds. Breath sounds are equal bilaterally. No adventitious lung sounds including wheezes rhonchi or crackles. Abdomen soft bowel sounds are heard. No masses or tenderness. Extremities are intact. No cyanosis clubbing or edema. Skin is without rash or lesion. Neurologic examination is brief but nonfocal. - Labs CBC & Chem 7: 06/23/18 15:32 06/23/18 15:32 Labs: Abnormal Lab Results - Last 24 Hours (Table) 06/23/18 06/24/18 06/24/18 Range/Units 15:32 16:20 16:25 PT (9.0-12.0) sec INR (<1.2) APTT 55.2 H (22.0-30.0) sec POC Glucose (mg/dL) 155 H (75-99) mg/dL Hemoglobin A1c 8.7 H (4.0-6.0) % Ur Leukocyte Esterase (Negative) Urine WBC (0-5) /hpf Urine Yeast (Budding) (None) /hpf 06/24/18 06/24/18 06/25/18 Range/Units 21:19 22:50 07:03 PT (9.0-12.0) sec INR (<1.2) APTT (22.0-30.0) sec POC Glucose (mg/dL) 166 H 187 H (75-99) mg/dL Hemoglobin A1c (4.0-6.0) % Ur Leukocyte Esterase Moderate H (Negative) Urine WBC 26 H (0-5) /hpf Urine Yeast (Budding) Occasional H (None) /hpf 06/25/18 06/25/18 Range/Units 08:44 12:04 PT 17.4 H (9.0-12.0) sec INR 1.9 H (<1.2) APTT (22.0-30.0) sec POC Glucose (mg/dL) 113 H (75-99) mg/dL Hemoglobin A1c (4.0-6.0) % Ur Leukocyte Esterase (Negative) Urine WBC (0-5) /hpf Urine Yeast (Budding) (None) /hpf Microbiology - Last 24 Hours (Table) 06/24/18 22:50 Urine Culture - Preliminary Urine,Voided Assessment and Plan Plan: Vague complaints of lightheadedness and dizziness and fatigue, unlikely related to a new onset pulmonary embolism but rather to either a sinus infection and/or a urinary tract infection. On chronic Coumadin therapy, and the patient is currently therapeutic History of factor V Leiden factor V deficiency with a previous pulmonary embolism back in 2016, on lifelong anticoagulation. Urinary tract infection, acute History of diabetes mellitus Previous history of DVT Hyperlipidemia History of hypertension Previous history of , hysterectomy, tubal ligation Plan: Patient is doing well, and her symptoms are not thought to be related to a new pulmonary embolism, CT angiogram showed dissipating old pulmonary embolism with the residual clot in the right lower lobe. Continue Coumadin. Patient is covered with antibiotics for her pansinusitis. Clinically he is doing well, no acute complaints. Patient can be cleared for discharge home from pulmonary standpoint I performed a history & physical examination of the patient and discussed their management with my nurse practitioner, Joycelyn Montoya. I reviewed the nurse practitioner's note and agree with the documented findings and plan of care. Lung sounds are clear. The findings and the impression was discussed with the patient. I attest to the documentation by the nurse practitioner. Time with Patient: Less than 30
--- NOTE | 2018-06-25 23:33 | DS ---
DISCHARGE SUMMARY DATE OF ADMISSION: 06/23/2018. DATE OF DISCHARGE: 06/25/2018. FINAL DIAGNOSES: 1. Severe exhaustion from severe sleep deprivation due to social factors. 2. Morbid obesity, body mass index 50.9. 3. Bilateral lower extremity lymphedema. 4. Chronic pulmonary embolism. No evidence of acute pulmonary embolism. 5. Chronic Coumadin monitoring. 6. Essential hypertension. 7. Hyperlipidemia. 8. Diabetes mellitus type 2 on oral hypoglycemic. 9. Acute urinary tract infection. HOSPITAL COURSE: This patient presented weak and tired, totally rundown. Has been taking care of her with Parkinson's. Not able to sleep at night and then goes to work in the morning. The patient did have a CT scan that showed PE that could not be told if new or old, though much better than prior CT scan. Since the symptoms are not compatible PE, this diagnosis was disregarded. The patient was simply sleep-deprived and exhausted. The patient did sleep actually the night she came to the hospital and felt fairly well. Care was discussed with the patient. CONSULTATION: Dr. Carlisle from Pulmonary. PHYSICAL EXAMINATION: Temperature 98, blood pressure 130/79, pulse ox 95% on room air. INR 2.8. DISCHARGE MEDICATIONS: 1. Ziac 5/6.25, 1 tablet p.o. daily. 2. Lopid 600 mg daily. 3. Xanax 1 mg p.o. daily p.r.n. 4. Glipizide 10 mg p.o. daily. 5. Metformin 1000 mg b.i.d. 6. Lexapro 10 mg p.o. daily. 7. Zantac 150 mg b.i.d. 8. Coumadin 2.5 mg on Thursday, Thursday, Thursday, , Thursday, Thursday and 5 mg on Thursday. 9. Cipro 250 mg b.i.d., 4 tablets. FOLLOWUP: Follow up with Dr. Sams on 07/02/2018. The patient was told to wear Tony wraps. Sleep hygiene was discussed in detail. MMODL / CARLOSN: [id number] /
[2018-06-30] MEDS ORDERED: WARFARIN 5 MG TAB PO SCH (18:00)
== END 2018-06-25 15:37 | disposition home or self-care (01) ==
LOC: EC 14:39 → INTOOBSV 18:57 → 6SEL 18:57 → 4MS4W 06-24 21:20
PROVIDERS: ADMIT Hospitalist; ATTEND Hospitalist
DX: R53.83 Other fatigue (principal); Z72.820 Sleep deprivation; I27.82 Chronic pulmonary embolism; N39.0 Urinary tract infection, site not specified; I89.0 Lymphedema, not elsewhere classified; I10 Essential (primary) hypertension; E78.5 Hyperlipidemia, unspecified; E11.9 Type 2 diabetes mellitus without complications; D68.2 Hereditary deficiency of other clotting factors; J32.4 Chronic pansinusitis; E66.01 Morbid (severe) obesity due to excess calories; Z68.43 Body mass index [BMI] 50.0-59.9, adult; R53.1 Weakness; F41.9 Anxiety disorder, unspecified; R42 Dizziness and giddiness; Z79.84 Long term (current) use of oral hypoglycemic drugs; Z79.01 Long term (current) use of anticoagulants; Z79.899 Other long term (current) drug therapy; Z88.6 Allergy status to analgesic agent; Z88.1 Allergy status to other antibiotic agents; Z88.0 Allergy status to penicillin; Z88.2 Allergy status to sulfonamides; Z86.718 Personal history of other venous thrombosis and embolism; Z90.710 Acquired absence of both cervix and uterus; Z90.89 Acquired absence of other organs; Z83.2 Family history of diseases of the blood and blood-forming organs and certain disorders involving the immune mechanism
CPT/HCPCS: 96366; 96361; 96365; 99285; 36415; 93005; 80053; 84443; 84484; 85025; 85610 ×2; 85730; 81001 ×2; 87086; 83036; 93970; 70450; 71275; G0378 ×3; J1644 ×2; J0696 ×2; Q9967

== ENCOUNTER → 2019-05-20 | Outpatient (CLI) | payer BC ==
--- NOTE | 2019-05-20 16:09 | CT ---
EXAMINATION TYPE: CT sinus wo con DATE OF EXAM: 05/20/2019 COMPARISON: 12/13/2010 HISTORY: Chronic sinusitis and dizziness. CT DLP: 627.[address] of the paranasal sinuses was performed in the axial and coronal planes. Bone and soft tissue settings are submitted. Postoperative changes of medial maxillary antrectomy and ethmoidectomy. Persistent mucosal thickening noted of the maxillary sinuses and remaining ethmoid air cells. Complete opacification of diminutive frontal sinuses. The nasal septum is midline. No bony destructive changes are seen within the field of view. IMPRESSION: 1. Postoperative changes as noted with chronic pansinusitis redemonstrated.
== END | disposition home or self-care (01) ==
LOC: RADCTMAIN 15:39
PROVIDERS: ATTEND Family Medicine
DX: J32.4 Chronic pansinusitis (principal); Z98.890 Other specified postprocedural states
CPT/HCPCS: 70486

== ENCOUNTER → 2020-01-23 | Outpatient (CLI) | payer BC ==
--- NOTE | 2020-01-23 11:22 | US ---
EXAMINATION TYPE: US abdomen complete DATE OF EXAM: 01/23/2020 COMPARISON: 12/01/2017 ultrasound abdomen CLINICAL HISTORY: R10.11 R upper quad pain. RUQ pain EXAM MEASUREMENTS: Liver Length: 19.0 cm Gallbladder Wall: .14 cm CBD: .6 cm Spleen: 11.3 cm Right Kidney: 9.4 x 4.8 x 5.4 cm Left Kidney: 12.3 x 5.7 x 4.1 cm Pancreas: Dilated duct .5cm. Liver: There is increased echogenicity of the hepatic parenchyma with diminished visualization of th e portal triads most commonly relating to hepatic steatosis and limiting evaluation for underlying he patic masses. Gallbladder: wnl Evidence for sonographic Hernandez's sign: No CBD: wnl Spleen: wnl Right Kidney: Cortical thinning. Left Kidney: Cortical thinning, to a lesser degree than on the right. Upper IVC: wnl Abd Aorta: wnl IMPRESSION: 1. Dilated main pancreatic duct is again seen as seen on the prior of 12/01/2017. Considerations are fo r sequela of chronic pancreatitis, main branch IPMN or less likely necrotic neoplasm as there is no s ignificant interval change from the prior ultrasound. Again relation with serum alkaline phosphatase/ bilirubin, amylase/lipase levels and CA-19-9 levels are recommended. 2. Sonographic findings most commonly related to hepatic steatosis. Correlate with liver function govind ts. 3. Bilateral cortical renal thinning (right greater than left) indicative of chronic medical renal di sease.
== END | disposition home or self-care (01) ==
LOC: RADUSWWP 10:04
PROVIDERS: ATTEND Family Medicine
DX: K86.89 Other specified diseases of pancreas (principal); K86.1 Other chronic pancreatitis; K76.0 Fatty (change of) liver, not elsewhere classified; N28.89 Other specified disorders of kidney and ureter
CPT/HCPCS: 76700

== ENCOUNTER → 2020-08-21 | Outpatient (CLI) | payer BC ==
--- NOTE | 2020-08-21 18:16 | BD ---
EXAMINATION TYPE: Axial Bone Density DATE OF EXAM: 08/21/2020 COMPARISON: 11/29/2004 CLINICAL HISTORY: Postmenopausal screening Height: 5 FT 4 1/4 IN Weight: 264 FRAX RISK QUESTIONS: Alcohol (3 or more units per day): NO Family History (Parent hip fracture): NO Glucocorticoids (More than 3mos): NO (Ex: prednisone, prednisolone, methylprednisolone, dexamethasone, and hydrocortisone). History of Fracture in Adulthood: YES Secondary Osteoporosis: 1. Type 1 Diabetes: NO 2. Hyperthyroidism: NO 3. Menopause before 45: AT 43 4. Malnutrition: NO 5. Chronic liver disease: NO Rheumatoid Arthritis: NO Current Tobacco Use: NO RISK FACTORS HISTORY OF: Family History of Osteoporosis: NO Active: YES Diet low in dairy products/other sources of calcium: NO Postmenopausal woman: TOTAL HYST AGE 43 Take estrogen and/or progesterone medications: NONE Lost more than 2 inches in height since high school: NO Frequent falls: NO MEDICATIONS: Additional Medications: METFORMIN, CHOLESTEROL MEDS, ZIAC, ELEQUIS, REFLUX MEDS, Additional History: EXAM MEASUREMENTS: Bone mineral densitometry was performed using the [employer] System. Bone mineral density as measured about the Lumbar spine is: ----- L1-L4(G/cm2): 1.796 T Score Values are as follows: ----- L2: 5.1 ----- L3: 4.9 ----- L4: 5.8 ----- L1-L4: 5.1 Bone mineral density has: INCREASED 13.3 % since study of: 2004 Bone mineral density about the R hip (g/cm2): 1.669 Bone mineral density about the L hip (g/cm2): 1.549 T Score values are as follows: -----R Neck: 3.7 -----L Neck: 4.5 -----R Total: 5.4 -----L Total: 5.5 Bone mineral density has: INCREASED 6.6 % since study of: 2004 IMPRESSION: Normal (Values between +1 and -1 indicate normal bone mass). Consider repeating this study in 5 year s or sooner if there is some new clinical indication. NOTE: T-SCORE=SD OF THE YOUNG ADULT MEAN.
--- NOTE | 2020-08-22 09:30 | MM ---
Reason for exam: screening (asymptomatic). Last mammogram was performed 14 years and 5 months ago. History: Patient is postmenopausal. Physical Findings: A clinical breast exam by your physician is recommended on an annual basis and results should be correlated with mammographic findings. MG Screening Mammo w CAD Bilateral CC and MLO view(s) were taken. Prior study comparison: March 27, 2006, bilateral screening mammogram w/CAD. November 29, 2004, bilateral screening mammogram. There are scattered fibroglandular densities. Stable benign calcifications. There is no discrete abnormality. No significant changes when compared with prior studies. ASSESSMENT: Benign, BI-RAD 2 RECOMMENDATION: Routine screening mammogram of both breasts in 1 year.
== END | disposition home or self-care (01) ==
LOC: RADMAMWWP 11:50
PROVIDERS: ATTEND Family Medicine
DX: Z12.31 Encounter for screening mammogram for malignant neoplasm of breast (principal); Z13.820 Encounter for screening for osteoporosis; M85.88 Other specified disorders of bone density and structure, other site
CPT/HCPCS: 77067; 77080

== ENCOUNTER → 2023-12-29 | Outpatient (CLI) | payer MEDICARE, BC ==
--- NOTE | 2023-12-30 09:18 | CA ---
Transthoracic Echo Report Name: Darlene Chi Age: 63 Gender: F : 1960 Exam Date: 12/29/2023 14:50 Exam Location: [facility] Ht (in): 64 Wt (lb): 257 Ordering Physician: Jus Sams DO Attending/Referring Phys: Jus Sams DO Procurement Technician Debbie Francisco RDCS Procedure CPT: Indications: R01.1 CARDIAC MURMUR, UNSPECIFIED Cardiac Hx: Technical Quality: Technically difficult study Contrast 1: Definity Total Dose (mL): 2 Contrast 2: Total Dose (mL): MEASUREMENTS (Male / Female) Normal Values 2D ECHO LV Diastolic Diameter PLAX 4.7 cm 4.2 - 5.9 / 3.9 - 5.3 cm LV Systolic Diameter PLAX 3.9 cm IVS Diastolic Thickness 1.3 cm 0.6 - 1.0 / 0.6 - 0.9 cm LVPW Diastolic Thickness 1.2 cm 0.6 - 1.0 / 0.6 - 0.9 cm LV Relative Wall Thickness 0.5 RV Internal Dim ED PLAX 4.2 cm LA Volume 53.8 cm??? 18 - 58 / 22 - 52 cm??? LA Volume Index 22.8 cm???/m??? 16 - 28 cm???/m??? M-MODE Aortic Root Diameter MM 2.4 cm LA Systolic Diameter MM 5.1 cm LA Ao Ratio MM 2.1 DOPPLER AV Peak Velocity 189.5 cm/s AV Peak Gradient 14.4 mmHg AV Mean Velocity 123.8 cm/s AV Mean Gradient 7.1 mmHg AV Velocity Time Integral 41.5 cm LVOT Peak Velocity 117.9 cm/s LVOT Peak Gradient 5.6 mmHg LVOT Velocity Time Integral 27.9 cm MV Area PHT 2.9 cm??? Mitral E Point Velocity 68.9 cm/s Mitral A Point Velocity 103.3 cm/s Mitral E to A Ratio 0.7 MV Deceleration Time 257.6 ms MV E' Velocity 6.7 cm/s Mitral E to MV E' Ratio 10.3 TR Peak Velocity 185.5 cm/s TR Peak Gradient 13.8 mmHg Right Ventricular Systolic Press 18.8 mmHg FINDINGS Left Ventricle Mildly increased left ventricular wall thickness. Left ventricular cavity size normal. Normal left ventricular systolic function with no obvious regional wall motion abnormalities. Left ventricular ejection fraction is estimated at 55-60 %. Grade 1 diastolic dysfunction. Right Ventricle Right ventricular dilatation. Right ventricular systolic pressure within normal limits. Right Atrium Right atrium not well visualized. Left Atrium Mildly increased left atrial volume. Mitral Valve Structurally normal mitral valve. Mild mitral regurgitation. Aortic Valve Aortic valve not well visualized. No aortic valve stenosis or regurgitation. Tricuspid Valve Structurally normal tricuspid valve. Mild tricuspid regurgitation. Pulmonic Valve Structurally normal pulmonic valve. Pericardium No pericardial effusion. Aorta Normal size aortic root and proximal ascending aorta. CONCLUSIONS Left ventricular ejection fraction 55-60% Mildly increased left ventricular wall thickness Mild mitral regurgitation Mild tricuspid regurgitation No pericardial effusion Previewed by: Dr. Hayes Brandon DO (Electronically Signed) Final Date: 30 December 2023 09:17
== END | disposition home or self-care (01) ==
LOC: RADECHMAIN 14:27
PROVIDERS: ATTEND Family Medicine
DX: I34.0 Nonrheumatic mitral (valve) insufficiency (principal); I07.1 Rheumatic tricuspid insufficiency
CPT/HCPCS: C8929; Q9957; 93306

== ENCOUNTER 2025-03-12 21:10 | Observation (INO) | payer MEDICARE, BC ==
[2025-03-12 21:19] LABS: Glucose,Whole Blood 197 mg/dL (70-110)
--- NOTE | 2025-03-12 21:33 | ED ---
General Adult HPI - General Source: patient, EMS, RN notes reviewed Mode of arrival: ambulatory - History of Present Illness Onset/Timin -: hour(s) Associated Symptoms: cough, fever/chills, malaise, nausea/vomiting <Lior Mohan - Last Filed: 03/12/25 22:52> <Rustam Vazquez - Last Filed: 03/16/25 19:16> - General Chief complaint: Nausea/Vomiting/Diarrhea Stated complaint: Fever, Nausea/Vomiting Time Seen by Provider: 03/12/25 21:27 - History of Present Illness Initial comments: This is a 64-year-old female with history including DM, hypertension, hyperlipidemia and blood clots presenting for sick symptoms x 36 hours. Patient states she is having a fever/chills, fatigue, N/V/D. Also endorses cough with phlegm production and mid back pain. Patient states she wears depends diapers. Endorses use of Tylenol this morning. Denies chest pain, dyspnea, abdominal pain, hematemesis, hematochezia, melena, dysuria, hematuria. (Lior Mohan) - Related Data Home Medications Medication Instructions Recorded Confirmed Bisoprolol-Hctz 5-6.25 mg [Ziac 1 tab PO DAILY 07/25/15 03/13/25 5-6.25 MG] Acetaminophen [Tylenol Arthritis] 1,300 mg PO Q6H PRN 06/23/18 03/13/25 Apixaban [Eliquis] 2.5 mg PO BID 03/13/25 03/13/25 Atorvastatin [Lipitor] 40 mg PO DAILY 03/13/25 03/13/25 Escitalopram [Lexapro] 20 mg PO DAILY 03/13/25 03/13/25 Folic Acid 0.4 mg PO DAILY 03/13/25 03/13/25 Gabapentin [Neurontin] 600 mg PO HS 03/13/25 03/13/25 Insulin Aspart [NovoLOG Flexpen] 28 units SQ AC-BRKFST 03/13/25 03/13/25 Insulin Aspart [NovoLOG Flexpen] 32 units SQ AC-BID@1300,1700 03/13/25 03/13/25 Insulin Glargine (Lantus) [Lantus 50 unit SQ BID 03/13/25 03/13/25 Vial] traZODone HCL [Desyrel] 50 mg PO HS 03/13/25 03/13/25 Previous Rx's Medication Instructions Recorded Doxycycline 100 mg PO BID #6 tab 03/14/25 Loratadine-Pseudoeph 5-120 mg 1 each PO Q12HR #4 tab 03/14/25 [Claritin-D 12 Hour] Allergies Allergy/AdvReac Type Severity Reaction Status Date / Time amoxicillin Allergy Rash/Hives Verified 03/13/25 07:51 ibuprofen [From Motrin] Allergy Rash/Hives Verified 03/13/25 07:51 levofloxacin [From Levaquin] Allergy Rash/Hives Verified 03/13/25 07:51 sulfamethoxazole Allergy Rash/Hives Verified 03/13/25 07:51 [From Bactrim] trimethoprim [From Bactrim] Allergy Rash/Hives Verified 03/13/25 07:51 Review of Systems ROS Other: All systems not noted in ROS Statement are negative. <Lior Mohan - Last Filed: 03/12/25 22:52> ROS Other: All systems not noted in ROS Statement are negative. <Rustam Vazquez - Last Filed: 03/16/25 19:16> ROS Statement: Those systems with pertinent positive or pertinent negative responses have been documented in the HPI. Past Medical History Past Medical History: Blood Disorder, Diabetes Mellitus, Deep Vein Thrombosis (DVT), Hyperlipidemia, Hypertension, Pulmonary Embolus (PE) Additional Past Medical History / Comment(s): IRON DEFICIENCY. History of Any Multi-Drug Resistant Organisms: None Reported Past Surgical History: Appendectomy, Section, Hysterectomy, Tubal Ligation Additional Past Surgical History / Comment(s): sinus surgery x3, X4, tubal and reversal, left kidney cyst removed, cyst removed fallopian tube Past Anesthesia/Blood Transfusion Reactions: Postoperative Nausea & Vomiting (PONV) Past Psychological History: Anxiety Smoking Status: Never smoker Past Alcohol Use History: None Reported Past Drug Use History: Marijuana - Past Family History Mother Family Medical History: Deep Vein Thrombosis (DVT) Additional Family Medical History / Comment(s): yeast allergy. Maternal grandmother DVT <Lior Mohan - Last Filed: 03/12/25 22:52> General Exam General appearance: alert, in no apparent distress Head exam: Present: atraumatic, normocephalic, normal inspection Eye exam: Present: normal appearance, PERRL, EOMI. Absent: scleral icterus, conjunctival injection, periorbital swelling ENT exam: Present: normal exam, mucous membranes dry Neck exam: Present: normal inspection. Absent: tenderness, meningismus, lymphadenopathy Respiratory exam: Present: normal lung sounds bilaterally. Absent: respiratory distress, wheezes, rales, rhonchi, stridor, accessory muscle use, decreased breath sounds, prolonged expiratory Cardiovascular Exam: Present: regular rate, normal rhythm, normal heart sounds. Absent: systolic murmur, diastolic murmur, rubs, gallop, clicks GI/Abdominal exam: Present: soft, normal bowel sounds. Absent: distended, tenderness, guarding, rebound, rigid Extremities exam: Present: normal inspection, full ROM, normal capillary refill. Absent: tenderness, pedal edema, joint swelling, calf tenderness Back exam: Present: CVA tenderness (R). Absent: CVA tenderness (L) Neurological exam: Present: alert, oriented X3, CN II-XII intact Psychiatric exam: Present: normal affect, normal mood Skin exam: Present: warm, dry, intact, normal color. Absent: rash <Lior Mohan - Rafal Filed: 03/12/25 22:52> Course Vital Signs 03/12/25 03/12/25 03/13/25 21:15 22:37 00:00 Temperature 102.2 F H 99.4 F Pulse Rate 69 58 L 58 L Respiratory 18 18 18 Rate Blood Pressure 167/111 156/79 127/58 O2 Sat by Pulse 97 96 97 Oximetry 03/13/25 03/13/25 03/13/25 01:48 04:36 06:41 Temperature 99.4 F Pulse Rate 63 77 75 Respiratory 18 18 18 Rate Blood Pressure 141/81 118/61 135/56 O2 Sat by Pulse 98 96 97 Oximetry 03/13/25 03/13/25 07:45 08:07 Temperature 98.2 F 98.3 F Pulse Rate 68 64 Respiratory 16 18 Rate Blood Pressure 132/62 135/54 O2 Sat by Pulse 98 98 Oximetry Medical Decision Making - Lab Data Result diagrams: 03/12/25 21:41 <Lior Mohan - Rafal Filed: 03/12/25 22:52> - Lab Data Result diagrams: 03/12/25 21:41 03/12/25 21:41 <uRstam Vazquez - Last Filed: 03/16/25 19:16> - Medical Decision Making Was pt. sent in by a medical professional or institution ([facility], [facility], urgent care, hospital, or penitentiary...) When possible be specific @ -[No] Did you speak to anyone other than the patient for history (EMS, parent, family, police, friend...)? What history was obtained from this source @ -[No] Did you review nursing and triage notes (agree or disagree)? Why? @ -[I reviewed and agree with nursing and triage notes] Were old charts reviewed (outside hosp., previous admission, EMS record, old EKG, old radiological studies, urgent care reports/EKG's, penitentiary records)? Report findings @ -[No old charts were reviewed] Differential Diagnosis (chest pain, altered mental status, abdominal pain women, abdominal pain men, vaginal bleeding, weakness, fever, dyspnea, syncope, headache, dizziness, GI bleed, back pain, seizure, CVA, palpatations, mental h ealth, musculoskeletal)? @ -Differential Fever: Pneumonia, viral URI, endocarditis, myocarditis, pericarditis, otitis, sinusitis, peritonsillar Abscess, retropharyngeal Abscess, epiglottitis, periton itis, appendicitis, Gini cystitis, diverticulitis, hepatitis, colitis, UTI, PID, TOA, pyelonephritis, prostatitis, epididymitis, meningitis, encephalitis, pulmonary embolism, CVA, thyroid storm, pancreatitis, adrenal crisis, cavernous sinus thrombosis, this is not meant to be an all-inclusive list. EKG interpreted by me (3pts min.). @ -Not done X-rays interpreted by me (1pt min.). @ -[None done] CT interpreted by me (1pt min.). @ -[None done] U/S interpreted by me (1pt. min.). @ -[None done] What testing was considered but not performed or refused? (CT, X-rays, U/S, labs)? Why? @ -[None] What meds were considered but not given or refused? Why? @ -[None] Did you discuss the management of the patient with other professionals (professionals i.e. [facility], [employer], lab, RT, psych nurse, director social service, smeller, teacher, affirmative action officer, case investigator)? Give summary @ -[No] Was smoking cessation discussed for >3mins.? @ -[No] Was critical care preformed (if so, how long)? @ -[No] Were there social determinants of health that impacted care today? How? (Homelessness, low income, unemployed, alcoholism, drug addiction, transportation, low edu. Level, literacy, decrease access to med. care, care home, rehab)? @ -[No] Was there de-escalation of care discussed even if they declined (Discuss DNR or withdrawal of care, Hospice)? DNR status @ -[No] What co-morbidities impacted this encounter? (DM, HTN, Smoking, COPD, CAD, Cancer, CVA, ARF, Chemo, Hep., AIDS, mental health diagnosis, sleep apnea, morbi d obesity)? @ -[None] Was patient admitted / discharged? Hospital course, mention meds given and rou te, prescriptions, significant lab abnormalities, going to OR and other pertinent info. @ -Lab work and imaging pending. Patient HPI and physical exam results discussed and care handed off to Lauren Vazquez PA-C. Undiagnosed new problem with uncertain prognosis? @ -[No] Drug Therapy requiring intensive monitoring for toxicity (Heparin, Nitro, Insulin, Cardizem)? @ -[No] Were any procedures done? @ -[No] Diagnosis/symptom? @ -[default] Acute, or Chronic, or Acute on Chronic? @ -Acute Uncomplicated (without systemic symptoms) or Complicated (systemic symptoms)? @ -Complicated Side effects of treatment? @ -[No] Exacerbation, Progression, or Severe Exacerbation? @ -[No] Poses a threat to life or bodily function? How? (Chest pain, [place], [place], pneumonia, PE, COPD, DKA, ARF, appy, cholecystitis, CVA, Diverticulitis, Homicidal, Suicidal, threat to staff... and all critical care pts) @ -[No] (Lior Mohan) Urine is suggestive of UTI. Patient is still feeling quite weak. She is given 2 g of Rocephin and will be admitted. She is agreeable with this plan. I discu ssed this case with my attending Dr. Trachy diagnosis/symptom? @UTI Acute, or Chronic, or Acute on Chronic? @Acute Uncomplicated (without systemic symptoms) or Complicated (systemic symptoms)? @Complicated Side effects of treatment? @ [none] Exacerbation, Progression, or Severe Exacerbation] @ [no] Poses a threat to life or bodily function? @Yes (Rustam Vazquez) - Lab Data Lab Results 03/12/25 03/12/25 03/12/25 Range/Units 21:18 21:41 21:41 WBC 9.30 (4.50-10.00) 10*3/uL RBC 4.30 (4.10-5.20) 10*6/uL Hgb 12.7 (12.0-15.0) g/dL Hct 36.0 L (37.2-46.3) % MCV 83.7 (80.0-97.0) fL MCH 29.5 (27.0-32.0) pg MCHC 35.3 (32.0-37.0) g/dL Plt Count 205 (140-440) 10*3/uL MPV 9.6 (9.5-12.2) fL Immature Gran % (Auto) 0.4 % Neutrophils % 78.3 % Lymphocytes % 12.4 % Monocytes % 8.4 % Eosinophils % 0.0 % Basophils % 0.5 % Immature Gran # 0.04 (0.00-0.04) 10*3/uL Neutrophils # 7.28 (1.80-7.70) 10*3/uL Lymphocytes # 1.15 (0.90-5.00) 10*3/uL Monocytes # 0.78 (0.20-1.00) 10*3/uL Eosinophils # 0.00 L (0.04-0.35) 10*3/uL Basophils # 0.05 (0.00-0.10) 10*3/uL Sodium 132 L (137-145) mmol/L Potassium 3.5 (3.5-5.1) mmol/L Chloride 97 L (98-107) mmol/L Carbon Dioxide 21 L (22-30) mmol/L Anion Gap 14 mmol/L BUN 12 (7-17) mg/dL Creatinine 0.73 (0.52-1.04) mg/dL Est GFR (CKD-EPI)AfAm >90 (>60 ml/min/1.73 sqM) Est GFR (CKD-EPI)NonAf 86 (>60 ml/min/1.73 sqM) Glucose 203 H (74-99) mg/dL POC Glucose (mg/dL) 197 H (70-110) mg/dL POC Glu Electrical Machinist ID Kain Tao Lactic Ac Sepsis Rflx Plasma Lactic Acid Brian (0.7-2.0) mmol/L Calcium 9.2 (8.4-10.2) mg/dL Total Bilirubin 1.2 (0.2-1.3) mg/dL AST 20 (14-36) U/L ALT 13 (4-34) U/L Alkaline Phosphatase 89 (38-126) U/L Total Protein 7.0 (6.3-8.2) g/dL Albumin 3.6 (3.5-5.0) g/dL Lipase 53 (23-300) U/L Urine Color Urine Appearance (Clear) Urine pH (5.0-8.0) Ur Specific Hiko (1.001-1.035) Urine Protein (Negative) Urine Glucose (UA) (Negative) Urine Ketones (Negative) Urine Blood (Negative) Urine Nitrite (Negative) Urine Bilirubin (Negative) Urine Urobilinogen (<2.0) mg/dL Ur Leukocyte Esterase (Negative) Urine RBC (0-5) /hpf Urine WBC (0-5) /hpf Urine WBC Clumps (None) /hpf Ur Squamous Epith Cells (0-4) /hpf Amorphous Sediment (None) /hpf Urine Bacteria (None) /hpf Urine Mucus (None) /hpf Urine Yeast (Budding) (None) /hpf Influenza Type A (PCR) (Not Detectd) Influenza Type B (PCR) (Not Detectd) RSV (PCR) (Not Detectd) SARS-CoV-2 (PCR) (Not Detectd) 03/12/25 03/12/25 03/12/25 Range/Units 21:41 21:41 23:10 WBC (4.50-10.00) 10*3/uL RBC (4.10-5.20) 10*6/uL Hgb (12.0-15.0) g/dL Hct (37.2-46.3) % MCV (80.0-97.0) fL MCH (27.0-32.0) pg MCHC (32.0-37.0) g/dL Plt Count (140-440) 10*3/uL MPV (9.5-12.2) fL Immature Gran % (Auto) % Neutrophils % % Lymphocytes % % Monocytes % % Eosinophils % % Basophils % % Immature Gran # (0.00-0.04) 10*3/uL Neutrophils # (1.80-7.70) 10*3/uL Lymphocytes # (0.90-5.00) 10*3/uL Monocytes # (0.20-1.00) 10*3/uL Eosinophils # (0.04-0.35) 10*3/uL Basophils # (0.00-0.10) 10*3/uL Sodium (137-145) mmol/L Potassium (3.5-5.1) mmol/L Chloride (98-107) mmol/L Carbon Dioxide (22-30) mmol/L Anion Gap mmol/L BUN (7-17) mg/dL Creatinine (0.52-1.04) mg/dL Est GFR (CKD-EPI)AfAm (>60 ml/min/1.73 sqM) Est GFR (CKD-EPI)NonAf (>60 ml/min/1.73 sqM) Glucose (74-99) mg/dL POC Glucose (mg/dL) (70-110) mg/dL POC Glu Electrical Machinist ID Lactic Ac Sepsis Rflx Plasma Lactic Acid Brian 3.4 H* (0.7-2.0) mmol/L Calcium (8.4-10.2) mg/dL Total Bilirubin (0.2-1.3) mg/dL AST (14-36) U/L ALT (4-34) U/L Alkaline Phosphatase (38-126) U/L Total Protein (6.3-8.2) g/dL Albumin (3.5-5.0) g/dL Lipase (23-300) U/L Urine Color Light Yellow Urine Appearance Cloudy H (Clear) Urine pH 7.5 (5.0-8.0) Ur Specific Hiko 1.008 (1.001-1.035) Urine Protein Negative (Negative) Urine Glucose (UA) Negative (Negative) Urine Ketones Trace H (Negative) Urine Blood Negative (Negative) Urine Nitrite Positive H (Negative) Urine Bilirubin Negative (Negative) Urine Urobilinogen <2.0 (<2.0) mg/dL Ur Leukocyte Esterase Large H (Negative) Urine RBC 2 (0-5) /hpf Urine WBC 77 H (0-5) /hpf Urine WBC Clumps Occasional H (None) /hpf Ur Squamous Epith Cells 5 H (0-4) /hpf Amorphous Sediment Rare H (None) /hpf Urine Bacteria Many H (None) /hpf Urine Mucus Rare H (None) /hpf Urine Yeast (Budding) Few H (None) /hpf Influenza Type A (PCR) Not Detected (Not Detectd) Influenza Type B (PCR) Not Detected (Not Detectd) RSV (PCR) Not Detected (Not Detectd) SARS-CoV-2 (PCR) Not Detected (Not Detectd) 03/12/25 Range/Units 23:15 WBC (4.50-10.00) 10*3/uL RBC (4.10-5.20) 10*6/uL Hgb (12.0-15.0) g/dL Hct (37.2-46.3) % MCV (80.0-97.0) fL MCH (27.0-32.0) pg MCHC (32.0-37.0) g/dL Plt Count (140-440) 10*3/uL MPV (9.5-12.2) fL Immature Gran % (Auto) % Neutrophils % % Lymphocytes % % Monocytes % % Eosinophils % % Basophils % % Immature Gran # (0.00-0.04) 10*3/uL Neutrophils # (1.80-7.70) 10*3/uL Lymphocytes # (0.90-5.00) 10*3/uL Monocytes # (0.20-1.00) 10*3/uL Eosinophils # (0.04-0.35) 10*3/uL Basophils # (0.00-0.10) 10*3/uL Sodium (137-145) mmol/L Potassium (3.5-5.1) mmol/L Chloride (98-107) mmol/L Carbon Dioxide (22-30) mmol/L Anion Gap mmol/L BUN (7-17) mg/dL Creatinine (0.52-1.04) mg/dL Est GFR (CKD-EPI)AfAm (>60 ml/min/1.73 sqM) Est GFR (CKD-EPI)NonAf (>60 ml/min/1.73 sqM) Glucose (74-99) mg/dL POC Glucose (mg/dL) (70-110) mg/dL POC Glu Electrical Machinist ID Lactic Ac Sepsis Rflx Y Plasma Lactic Acid Brian (0.7-2.0) mmol/L Calcium (8.4-10.2) mg/dL Total Bilirubin (0.2-1.3) mg/dL AST (14-36) U/L ALT (4-34) U/L Alkaline Phosphatase (38-126) U/L Total Protein (6.3-8.2) g/dL Albumin (3.5-5.0) g/dL Lipase (23-300) U/L Urine Color Urine Appearance (Clear) Urine pH (5.0-8.0) Ur Specific Hiko (1.001-1.035) Urine Protein (Negative) Urine Glucose (UA) (Negative) Urine Ketones (Negative) Urine Blood (Negative) Urine Nitrite (Negative) Urine Bilirubin (Negative) Urine Urobilinogen (<2.0) mg/dL Ur Leukocyte Esterase (Negative) Urine RBC (0-5) /hpf Urine WBC (0-5) /hpf Urine WBC Clumps (None) /hpf Ur Squamous Epith Cells (0-4) /hpf Amorphous Sediment (None) /hpf Urine Bacteria (None) /hpf Urine Mucus (None) /hpf Urine Yeast (Budding) (None) /hpf Influenza Type A (PCR) (Not Detectd) Influenza Type B (PCR) (Not Detectd) RSV (PCR) (Not Detectd) SARS-CoV-2 (PCR) (Not Detectd) Disposition <Lior Mohan - Last Filed: 03/12/25 22:52> Time of Disposition: 03:20 <Rustam Vazquez - Last Filed: 03/16/25 19:16> Clinical Impression: UTI (urinary tract infection), Generalized weakness Disposition: ADMITTED IP TO THIS HOSP Condition: Good
[2025-03-12] MEDS: ONDANSETRON 4 MG/2 ML VIAL IVP STA (21:44)
[2025-03-12] MEDS: ACETAMINOPHEN TAB 500 MG TAB PO STA (21:44)
[2025-03-12] MEDS: LACTATED RINGERS 1,000 ML IV ONE (21:45)
[2025-03-12] MEDS: ACETAMINOPHEN IV (For NPO) 1,000 MG in EMPTY BAG 1 BAG IVPB STA (21:51)
[2025-03-12 22:38] LABS: Basophils # (A) 0.05 10*3/uL (0.00-0.10); Basophils % (A) 0.5 %; HGB 12.7 g/dL (12.0-15.0); Lymphocytes # (A) 1.15 10*3/uL (0.90-5.00); Lymphocytes % (A) 12.4 %; MCH 29.5 pg (27.0-32.0); MCHC 35.3 g/dL (32.0-37.0); MCV 83.7 fL (80.0-97.0); Mean Platelet Volume 9.6 fL (9.5-12.2); Monocytes # (A) 0.78 10*3/uL (0.20-1.00); Monocytes % (A) 8.4 %; Neutrophils # (A) 7.28 10*3/uL (1.80-7.70); Neutrophils % (A) 78.3 %; Platelet Count 205 10*3/uL (140-440); RDW 13.9 % (11.5-14.5)
[2025-03-12 22:56] LABS: ALT 13 U/L (4-34); AST 20 U/L (14-36); African American GFR (CKD) >90 (>60 ml/min/1.73 sqM); Albumin 3.6 g/dL (3.5-5.0); Alkaline Phosphatase 89 U/L (38-126); Anion Gap 14 mmol/L; Blood Urea Nitrogen 12 mg/dL (7-17); Calcium 9.2 mg/dL (8.4-10.2); Carbon Dioxide 21 mmol/L (22-30); Chloride 97 mmol/L (98-107); Glucose 203 mg/dL (74-99); Lipase 53 U/L (23-300); Non-African American GFR(CKD) 86 (>60 ml/min/1.73 sqM); Potassium 3.5 mmol/L (3.5-5.1); Sodium 132 mmol/L (137-145); Total Bilirubin 1.2 mg/dL (0.2-1.3)
[2025-03-12 23:18] LABS: Influenza A Not Detected (Not Detectd); Influenza B Not Detected (Not Detectd); RSV Not Detected (Not Detectd)
[2025-03-12 23:56] LABS: Amorphous Sediment,Urine Rare /hpf; Appearance,Urine Cloudy (Clear); Bacteria,Urine Many /hpf; Bilirubin,Urine Negative (Negative); Blood,Urine Negative (Negative); Budding Yeast,Urine Few /hpf; Color,Urine Light Yellow; Glucose,Urine (UA) Negative (Negative); Ketones,Urine Trace (Negative); Leukocyte Esterase,Urine Large (Negative); Mucus,Urine Rare /hpf; Nitrite,Urine Positive (Negative); PH, Urine 7.5 (5.0-8.0); Protein,Urine Negative (Negative); RBC,Urine 2 /hpf (0-5); Specific Gravity,Urine 1.008 (1.001-1.035); Squamous Epithelial Cell,Urine 5 /hpf (0-4); Urobilinogen,Urine <2.0 mg/dL (<2.0); WBC,Urine 77 /hpf (0-5)
--- NOTE | 2025-03-13 02:36 | XR ---
EXAM: XR Chest, 2 Views CLINICAL HISTORY: ITS.REASON XR Reason: Fever, cough TECHNIQUE: Frontal and lateral views of the chest. COMPARISON: 07/25/2015. FINDINGS: Lungs: Unremarkable. No consolidative changes or pleural effusions. Pleural space: See above. Heart: There is cardiomegaly. Mediastinum: Unremarkable. Normal mediastinal contour. Bones/joints: Moderate degenerative disc disease and gentle dextroscoliosis. No acute fracture. IMPRESSION: Cardiomegaly. No consolidative changes or pleural effusions.
[2025-03-13] MEDS ORDERED: NALOXONE 0.4 MG/ML 1 ML VIAL IV PRN (03:19)
[2025-03-13] MEDS ORDERED: ACETAMINOPHEN TAB 325 MG TAB PO PRN (03:19)
[2025-03-13] MEDS: SODIUM CHLORIDE 0.9% 1,000 ML IV SCH (03:40)
[2025-03-13] MEDS: ONDANSETRON 4 MG/2 ML VIAL IVP PRN (03:43)
[2025-03-13] MEDS: SODIUM CHLORIDE 0.9% 500 ML 500 ML IV ONE (04:01)
[2025-03-13] MEDS ORDERED: ACETAMINOPHEN TAB 500 MG TAB PO PRN (10:22)
[2025-03-13] MEDS ORDERED: DEXTROSE 50% SYRINGE 50 ML IVP PRN ×2 (10:24)
[2025-03-13 11:58] LABS: Glucose,Whole Blood 167 mg/dL (70-110)
[2025-03-13] MEDS: APIXABAN 5 MG TAB PO SCH (12:21)
[2025-03-13] MEDS: FOLIC ACID 1 MG TAB PO SCH (12:21)
[2025-03-13] MEDS: ATORVASTATIN 40 MG TAB PO SCH (12:21)
[2025-03-13] MEDS: INSULIN GLARGINE (LANTUS) 100 UNIT/ML SYR SQ SCH (12:22)
[2025-03-13] MEDS: INSULIN LISPRO (HumaLOG) 100 UNIT/ML 10 mL VL SQ SCH ×2 (12:23→12:24)
[2025-03-13] MEDS: ESCITALOPRAM 20 MG TAB PO SCH (12:23)
[2025-03-13] MEDS: BISOPROLOL-HCTZ 5-6.25 MG 1 EACH TAB PO SCH (12:23)
[2025-03-13] MEDS: LORATADINE-PSEUDOEPH 5-120 MG 1 EACH TAB.ER.12H PO SCH (14:17)
[2025-03-13 17:11] LABS: Glucose,Whole Blood 188 mg/dL (70-110)
--- NOTE | 2025-03-13 17:29 | P.HPIM ---
History of Present Illness H&P Date: 03/13/25 Chief Complaint: Not feeling well Pleasant 64-year-old patient who follows with Dr. Sams. Chronic medical conditions include history of DVT PE, essential hypertension, hyperlipidemia, diabetes, unknown blood disorder. Chronic lymphedema lower extremities For 3 days patient been complaining of nasal drainage. This got a cough. Some green sputum. Fever. Appetite has been poor. Having bowel movements. Weak and tired. Patient did receive a dose of IV ceftriaxone in the ER. Did spike a fever 102.2 in the ER. Review of systems: GEN.: [Febrile tired decreased appetite EYES: None HEENT: As above NECK: None RESPIRATORY: As above CARDIOVASCULAR: None GASTROINTESTINAL: None GENITOURINARY: None MUSCULOSKELETAL: Joint pains LYMPHATICS: None HEMATOLOGICAL: None PSYCHIATRY: None NEUROLOGICAL: [Sometimes does use a four-wheel walker Social history: Lives with her son. No smoking no alcohol. Sometimes will use a four-wheel walker. Physical examination: VITAL SIGNS: 102.2, 69, 18, 156 x 79, 96% room air GENERAL: [BMI 47.9, reclining bed tired appearing. EYES: Pupils equal. Conjunctiva reddy l. HEENT: External appearance of nose and ears normal, oral cavity grossly normal. NECK: JVD not raised; masses not palpable. HEART: First and second heart sounds are normal; no edema. LUNGS: Respiratory rate normal; clear to auscultation. ABDOMEN: Soft, nontender, liver spleen not palpable, no masses palpable. PSYCH: Alert and oriented x3; mood and affect tired l. MUSCULOSKELETAL:No Clubbing/cyanosis;muscles-grossly intact. OA some joints NEUROLOGICAL: Cranial nerves grossly intact; no facial asymmetry, power and sensation grossly intact. LYMPHATICS: No lymph nodes palpable in the axilla and neck. Bilateral lower extremity lymphedema INVESTIGATIONS, reviewed in the clinical context: March 12, 2025: White count 9.3 hemoglobin 12.7 platelets 205 sodium 132 potassium 3.5 BUN 21 creatinine 0.73 blood glucose 203 Lactic acid 3.4 repeat 2.6 UA positive for nitrate, leukoesterase Influenza type A, type B, RSV, SARS-CoV-2: Not detected Chest x-ray film personally reviewed by me-some cardiomegaly. No infiltrates Assessment plan: - Acute tracheobronchitis. Patient called nasal drainage produced. Stuffiness. Cough with some yellow sputum. Chest x-ray is clear. Accompanied by decreased appetite weak and tired. Received a dose of IV ceftriaxone in the ER. IV fluids. Switch over to doxycycline. For nasal stuffiness will add Claritin-D. - Asymptomatic bacteriuria - Morbid obesity BMI 47.9 Weight loss measures - Bilateral lower extremity lymphedema - Diabetes mellitus type 2, chronically insulin Lantus. NovoLog. Follow Accu-Cheks with sliding scale - Chronic DVT PE Continue Eliquis. Change dose to 5 mg twice daily. - Hyperlipidemia Lipitor 40 mg a day - Peripheral neuropathy Neurontin 600 mg nightly - Depression Lexapro 20 mg a day - Primary osteoarthritis multiple joints Tylenol arthritis as needed - Chronic insomnia from medical conditions Trazodone 50 mg nightly Care was discussed with patient. Questions answered. Past Medical History Past Medical History: Blood Disorder, Diabetes Mellitus, Deep Vein Thrombosis (DVT), Hyperlipidemia, Hypertension, Pulmonary Embolus (PE) Additional Past Medical History / Comment(s): IRON DEFICIENCY. History of Any Multi-Drug Resistant Organisms: None Reported Past Surgical History: Appendectomy, Section, Hysterectomy, Tubal Ligation Additional Past Surgical History / Comment(s): sinus surgery x3, X4, tubal and reversal, left kidney cyst removed, cyst removed fallopian tube Past Anesthesia/Blood Transfusion Reactions: Postoperative Nausea & Vomiting (PO NV) Past Psychological History: Anxiety Smoking Status: Never smoker Past Alcohol Use History: None Reported Past Drug Use History: Marijuana - Past Family History Mother Family Medical History: Deep Vein Thrombosis (DVT) Additional Family Medical History / Comment(s): yeast allergy. Maternal grandmother DVT Medications and Allergies Home Medications Medication Instructions Recorded Confirmed Type Bisoprolol-Hctz 5-6.25 mg [Ziac 1 tab PO DAILY 07/25/15 03/13/25 History 5-6.25 MG] Acetaminophen [Tylenol Arthritis] 1,300 mg PO Q6H PRN 06/23/18 03/13/25 History Apixaban [Eliquis] 2.5 mg PO BID 03/13/25 03/13/25 History Atorvastatin [Lipitor] 40 mg PO DAILY 03/13/25 03/13/25 History Escitalopram [Lexapro] 20 mg PO DAILY 03/13/25 03/13/25 History Folic Acid 0.4 mg PO DAILY 03/13/25 03/13/25 History Gabapentin [Neurontin] 600 mg PO HS 03/13/25 03/13/25 History Insulin Aspart [NovoLOG Flexpen] 28 units SQ AC-BRKFST 03/13/25 03/13/25 History Insulin Aspart [NovoLOG Flexpen] 32 units SQ AC-BID@1300,1700 03/13/25 03/13/25 History Insulin Glargine (Lantus) [Lantus 50 unit SQ BID 03/13/25 03/13/25 History Vial] traZODone HCL [Desyrel] 50 mg PO HS 03/13/25 03/13/25 History Allergies Allergy/AdvReac Type Severity Reaction Status Date / Time amoxicillin Allergy Rash/Hives Verified 03/13/25 07:51 ibuprofen [From Motrin] Allergy Rash/Hives Verified 03/13/25 07:51 levofloxacin [From Levaquin] Allergy Rash/Hives Verified 03/13/25 07:51 sulfamethoxazole Allergy Rash/Hives Verified 03/13/25 07:51 [From Bactrim] trimethoprim [From Bactrim] Allergy Rash/Hives Verified 03/13/25 07:51 Physical Exam Vitals: Vital Signs Temp Pulse Pulse Resp BP BP Pulse Ox 03/13/25 08:44 98.5 F 66 18 132/76 96 03/13/25 08:07 98.3 F 64 18 135/54 98 03/13/25 07:45 98.2 F 68 16 132/62 98 03/13/25 06:41 75 18 135/56 97 03/13/25 04:36 99.4 F 77 18 118/61 96 03/13/25 01:48 63 18 141/81 98 03/13/25 00:00 58 L 18 127/58 97 03/12/25 22:37 99.4 F 58 L 18 156/79 96 03/12/25 21:15 102.2 F H 69 18 167/111 97 Intake and Output 03/12/25 03/13/25 03/13/25 22:59 06:59 14:59 Other: Weight 126.552 kg 126.552 kg Results CBC & Chem 7: 03/12/25 21:41 03/12/25 21:41 Labs: Abnormal Lab Results - Last 24 Hours (Table) 03/12/25 03/12/25 03/12/25 Range/Units 21:18 21:41 21:41 Hct 36.0 L (37.2-46.3) % Eosinophils # 0.00 L (0.04-0.35) 10*3/uL Sodium 132 L (137-145) mmol/L Chloride 97 L (98-107) mmol/L Carbon Dioxide 21 L (22-30) mmol/L Glucose 203 H (74-99) mg/dL POC Glucose (mg/dL) 197 H (70-110) mg/dL Plasma Lactic Acid Brian (0.7-2.0) mmol/L Urine Appearance (Clear) Urine Ketones (Negative) Urine Nitrite (Negative) Ur Leukocyte Esterase (Negative) Urine WBC (0-5) /hpf Urine WBC Clumps (None) /hpf Ur Squamous Epith Cells (0-4) /hpf Amorphous Sediment (None) /hpf Urine Bacteria (None) /hpf Urine Mucus (None) /hpf Urine Yeast (Budding) (None) /hpf 03/12/25 03/12/25 03/13/25 Range/Units 21:41 23:10 03:25 Hct (37.2-46.3) % Eosinophils # (0.04-0.35) 10*3/uL Sodium (137-145) mmol/L Chloride (98-107) mmol/L Carbon Dioxide (22-30) mmol/L Glucose (74-99) mg/dL POC Glucose (mg/dL) (70-110) mg/dL Plasma Lactic Acid Brian 3.4 H* 2.6 H* (0.7-2.0) mmol/L Urine Appearance Cloudy H (Clear) Urine Ketones Trace H (Negative) Urine Nitrite Positive H (Negative) Ur Leukocyte Esterase Large H (Negative) Urine WBC 77 H (0-5) /hpf Urine WBC Clumps Occasional H (None) /hpf Ur Squamous Epith Cells 5 H (0-4) /hpf Amorphous Sediment Rare H (None) /hpf Urine Bacteria Many H (None) /hpf Urine Mucus Rare H (None) /hpf Urine Yeast (Budding) Few H (None) /hpf Thrombosis Risk Factor Assmnt - Choose All That Apply Any of the Below Risk Factors Present?: No Other Risk Factors: Yes Each Risk Factor Represents 2 Points: Age 61-74 years Each Risk Factor Represents 3 Points: Family history of DVT/PE Thrombosis Risk Factor Assessment Total Risk Factor Score: 5 Thrombosis Risk Factor Assessment Level: High Risk
[2025-03-13 19:50] VITALS: RESP 14
[2025-03-13 20:14] LABS: Glucose,Whole Blood 146 mg/dL (70-110)
[2025-03-13] MEDS: DOXYCYCLINE 100 MG TABLET PO SCH (20:50)
[2025-03-13] MEDS: traZODone HCL 50 MG TAB PO SCH (20:50)
[2025-03-13] MEDS: GABAPENTIN 300 MG CAP PO SCH (20:51)
[2025-03-14 01:43] VITALS: TEMP 97.9
[2025-03-14 07:19] LABS: Glucose,Whole Blood 114 mg/dL (70-110)
[2025-03-14 07:31] VITALS: BP 132/62; PULSE 56
[2025-03-14] MEDS: INSULIN LISPRO (HumaLOG) 100 UNIT/ML 10 mL VL SQ SCH (08:21)
--- NOTE | 2025-03-14 15:56 | P.PN ---
Progress Note - Text Progress Note Date: 03/14/25 Chief Complaint: Not feeling well Pleasant 64-year-old patient who follows with Dr. Sams. Chronic medical conditions include history of DVT PE, essential hypertension, hyperlipidemia, diabetes, unknown blood disorder. Chronic lymphedema lower extremities For 3 days patient been complaining of nasal drainage. This got a cough. Some green sputum. Fever. Appetite has been poor. Having bowel movements. Weak and tired. Patient did receive a dose of IV ceftriaxone in the ER. Did spike a fever 102.2 in the ER. March 14: Up in recliner. Feels a lot better. No more nasal congestion. Very slight cough. Will complete 3 more days of oral doxycycline. Care was discussed with the patient. Social history: Lives with her son. No smoking no alcohol. Sometimes will use a four-wheel walker. Physical examination: VITAL SIGNS: 97.9, 56, 14, 132 x 62, 96% room air GENERAL: [BMI 47.9, r up to recliner, comfortable EYES: Pupils equal. Conjunctiva reddy l. HEENT: External appearance of nose and ears normal, oral cavity grossly normal. NECK: JVD not raised; masses not palpable. HEART: First and second heart sounds are normal; no edema. LUNGS: Respiratory rate normal; clear to auscultation. ABDOMEN: Soft, nontender, liver spleen not palpable, no masses palpable. PSYCH: Alert and oriented x3; mood and affect tired l. MUSCULOSKELETAL:No Clubbing/cyanosis;muscles-grossly intact. OA some joints NEUROLOGICAL: Cranial nerves grossly intact; no facial asymmetry, power and sensation grossly intact. LYMPHATICS: No lymph nodes palpable in the axilla and neck. Bilateral lower extremity lymphedema INVESTIGATIONS, reviewed in the clinical context: March 12, 2025: White count 9.3 hemoglobin 12.7 platelets 205 sodium 132 potassium 3.5 BUN 21 creatinine 0.73 blood glucose 203 Lactic acid 3.4 repeat 2.6 UA positive for nitrate, leukoesterase Influenza type A, type B, RSV, SARS-CoV-2: Not detected Chest x-ray film personally reviewed by me-some cardiomegaly. No infiltrates Assessment plan: - Acute tracheobronchitis. Patient called nasal drainage produced. Stuffiness. Cough with some yellow sputum. Chest x-ray is clear. Accompanied by decreased appetite weak and tired.: Much improved Received a dose of IV ceftriaxone in the ER. IV fluids. Switch over to doxycycline. For nasal stuffiness will add Claritin-D. - Asymptomatic bacteriuria - Morbid obesity BMI 47.9 Weight loss measures - Bilateral lower extremity lymphedema - Diabetes mellitus type 2, chronically insulin Lantus. NovoLog. Follow Accu-Cheks with sliding scale - Chronic DVT PE Continue Eliquis. Change dose to 5 mg twice daily. - Hyperlipidemia Lipitor 40 mg a day - Peripheral neuropathy Neurontin 600 mg nightly - Depression Lexapro 20 mg a day - Primary osteoarthritis multiple joints Tylenol arthritis as needed - Chronic insomnia from medical conditions Trazodone 50 mg nightly Disposition:: Home Past Medical History Past Medical History: Blood Disorder, Diabetes Mellitus, Deep Vein Thrombosis (DVT), Hyperlipidemia, Hypertension, Pulmonary Embolus (PE) Additional Past Medical History / Comment(s): IRON DEFICIENCY. History of Any Multi-Drug Resistant Organisms: None Reported Past Surgical History: Appendectomy, Section, Hysterectomy, Tubal Ligation Additional Past Surgical History / Comment(s): sinus surgery x3, X4, tubal and reversal, left kidney cyst removed, cyst removed fallopian tube Past Anesthesia/Blood Transfusion Reactions: Postoperative Nausea & Vomiting (PONV) Past Psychological History: Anxiety Smoking Status: Never smoker Past Alcohol Use History: None Reported Past Drug Use History: Marijuana
--- NOTE | 2025-03-17 20:21 | P.DS ---
Providers Date of admission: 03/13/25 03:20 Expected date of discharge: 03/14/25 Attending physician: Anjel Britt Primary care physician: Jus Sams [facility] Course: Chief Complaint: Not feeling well Pleasant 64-year-old patient who follows with Dr. Sams. Chronic medical conditions include history of DVT PE, essential hypertension, hyperlipidemia, diabetes, unknown blood disorder. Chronic lymphedema lower extremities For 3 days patient been complaining of nasal drainage. This got a cough. Some green sputum. Fever. Appetite has been poor. Having bowel movements. Weak and tired. Patient did receive a dose of IV ceftriaxone in the ER. Did spike a fever 102.2 in the ER. March 14: Up in recliner. Feels a lot better. No more nasal congestion. Very slight cough. Will complete 3 more days of oral doxycycline. Care was discussed with the patient. Social history: Lives with her son. No smoking no alcohol. Sometimes will use a four-wheel walker. Physical examination: VITAL SIGNS: 97.9, 56, 14, 132 x 62, 96% room air GENERAL: [BMI 47.9, r up to recliner, comfortable EYES: Pupils equal. Conjunctiva reddy l. HEENT: External appearance of nose and ears normal, oral cavity grossly normal. NECK: JVD not raised; masses not palpable. HEART: First and second heart sounds are normal; no edema. LUNGS: Respiratory rate normal; clear to auscultation. ABDOMEN: Soft, nontender, liver spleen not palpable, no masses palpable. PSYCH: Alert and oriented x3; mood and affect tired l. MUSCULOSKELETAL:No Clubbing/cyanosis;muscles-grossly intact. OA some joints NEUROLOGICAL: Cranial nerves grossly intact; no facial asymmetry, power and sensation grossly intact. LYMPHATICS: No lymph nodes palpable in the axilla and neck. Bilateral lower extremity lymphedema INVESTIGATIONS, reviewed in the clinical context: March 12, 2025: White count 9.3 hemoglobin 12.7 platelets 205 sodium 132 potassium 3.5 BUN 21 creatinine 0.73 blood glucose 203 Lactic acid 3.4 repeat 2.6 UA positive for nitrate, leukoesterase Influenza type A, type B, RSV, SARS-CoV-2: Not detected Chest x-ray film personally reviewed by me-some cardiomegaly. No infiltrates Assessment plan: - Acute tracheobronchitis. Patient called nasal drainage produced. Stuffiness. Cough with some yellow sputum. Chest x-ray is clear. Accompanied by decreased appetite weak and tired.: Much improved Received a dose of IV ceftriaxone in the ER. IV fluids. Switch over to doxycycline. For nasal stuffiness will add Claritin-D. - Asymptomatic bacteriuria - Morbid obesity BMI 47.9 Weight loss measures - Bilateral lower extremity lymphedema - Diabetes mellitus type 2, chronically insulin Lantus. NovoLog. Follow Accu-Cheks with sliding scale - Chronic DVT PE Continue Eliquis. Change dose to 5 mg twice daily. - Hyperlipidemia Lipitor 40 mg a day - Peripheral neuropathy Neurontin 600 mg nightly - Depression Lexapro 20 mg a day - Primary osteoarthritis multiple joints Tylenol arthritis as needed - Chronic insomnia from medical conditions Trazodone 50 mg nightly Disposition:: Home Past Medical History Past Medical History: Blood Disorder, Diabetes Mellitus, Deep Vein Thrombosis (DVT), Hyperlipidemia, Hypertension, Pulmonary Embolus (PE) Additional Past Medical History / Comment(s): IRON DEFICIENCY. History of Any Multi-Drug Resistant Organisms: None Reported Past Surgical History: Appendectomy, Section, Hysterectomy, Tubal Ligation Additional Past Surgical History / Comment(s): sinus surgery x3, X4, tubal and reversal, left kidney cyst removed, cyst removed fallopian tube Past Anesthesia/Blood Transfusion Reactions: Postoperative Nausea & Vomiting (PONV) Past Psychological History: Anxiety Smoking Status: Never smoker Past Alcohol Use History: None Reported Past Drug Use History: Marijuana Plan - Discharge Summary Discharge Rx Participant: No New Discharge Prescriptions: New Doxycycline 100 mg PO BID #6 tab Loratadine-Pseudoeph 5-120 mg [Claritin-D 12 Hour] 1 each PO Q12HR #4 tab Continue Bisoprolol-Hctz 5-6.25 mg [Ziac 5-6.25 MG] 1 tab PO DAILY Acetaminophen [Tylenol Arthritis] 1,300 mg PO Q6H PRN PRN Reason: Pain Escitalopram [Lexapro] 20 mg PO DAILY Atorvastatin [Lipitor] 40 mg PO DAILY Apixaban [Eliquis] 2.5 mg PO BID Insulin Aspart [NovoLOG Flexpen] 28 units SQ AC-BRKFST Folic Acid 0.4 mg PO DAILY Insulin Glargine (Lantus) [Lantus Vial] 50 unit SQ BID Gabapentin [Neurontin] 600 mg PO HS traZODone HCL [Desyrel] 50 mg PO HS Insulin Aspart [NovoLOG Flexpen] 32 units SQ AC-BID@1300,1700 Discharge Medication List Bisoprolol-Hctz 5-6.25 mg [Ziac 5-6.25 MG] 1 tab PO DAILY 07/25/15 [History] Acetaminophen [Tylenol Arthritis] 1,300 mg PO Q6H PRN 06/23/18 [History] Apixaban [Eliquis] 2.5 mg PO BID 03/13/25 [History] Atorvastatin [Lipitor] 40 mg PO DAILY 03/13/25 [History] Escitalopram [Lexapro] 20 mg PO DAILY 03/13/25 [History] Folic Acid 0.4 mg PO DAILY 03/13/25 [History] Gabapentin [Neurontin] 600 mg PO HS 03/13/25 [History] Insulin Aspart [NovoLOG Flexpen] 28 units SQ AC-BRKFST 03/13/25 [History] Insulin Aspart [NovoLOG Flexpen] 32 units SQ AC-BID@1300,1700 03/13/25 [History] Insulin Glargine (Lantus) [Lantus Vial] 50 unit SQ BID 03/13/25 [History] traZODone HCL [Desyrel] 50 mg PO HS 03/13/25 [History] Doxycycline 100 mg PO BID #6 tab 03/14/25 [Rx] Loratadine-Pseudoeph 5-120 mg [Claritin-D 12 Hour] 1 each PO Q12HR #4 tab 03/14/25 [Rx] Follow up Appointment(s)/Referral(s): Jus Sams DO [Primary Care Provider] - 03/16/25 11:20 am Patient Instructions/Handouts: Doxycycline (By mouth), Loratadine (By mouth), Urinary Incontinence (ED), Urinary Tract Infection in Women (DC), Weakness (DC) Discharge Disposition: HOME SELF-CARE
== END 2025-03-14 12:41 | disposition home or self-care (01) ==
LOC: EC 21:10 → 4SSUR 03-13 03:20 → 5NMEDONC 03-13 05:31
PROVIDERS: ADMIT Hospitalist; ATTEND Hospitalist
DX: J20.9 Acute bronchitis, unspecified (principal); I11.9 Hypertensive heart disease without heart failure; E78.5 Hyperlipidemia, unspecified; I89.0 Lymphedema, not elsewhere classified; E11.42 Type 2 diabetes mellitus with diabetic polyneuropathy; R82.71 Bacteriuria; M54.6 Pain in thoracic spine; R11.2 Nausea with vomiting, unspecified; R19.7 Diarrhea, unspecified; M15.9 Polyosteoarthritis, unspecified; F32.A Depression, unspecified; F51.04 Psychophysiologic insomnia; E66.01 Morbid (severe) obesity due to excess calories; Z68.42 Body mass index [BMI] 45.0-49.9, adult; Z11.52 Encounter for screening for COVID-19; Z11.59 Encounter for screening for other viral diseases; Z79.01 Long term (current) use of anticoagulants; Z79.4 Long term (current) use of insulin; Z79.899 Other long term (current) drug therapy; Z88.0 Allergy status to penicillin; Z88.1 Allergy status to other antibiotic agents; Z88.2 Allergy status to sulfonamides; Z88.6 Allergy status to analgesic agent; Z86.718 Personal history of other venous thrombosis and embolism; Z86.711 Personal history of pulmonary embolism
CPT/HCPCS: 96361 ×4; 96376; 96365; 96375; 99285; 36415; 80053; 83605 ×2; 83690; 85025; 81001; 87040; 87086; 87077; 87186; 87636; 71046; G0378 ×3; J2405 ×2; J0696; J0131